=== PATIENT | male | born 1965 | race African-American/Black ===

== ENCOUNTER 2020-03-23 15:11 | Emergency (ER) | payer OTHER, SELFPAY ==
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
[2020-03-23 15:31] LABS: #Basophils 0.1 thou/uL (0.0-0.2); #Eosinphils 0.2 thou/uL (0.0-0.7); #Lymphocytes 1.3 thou/uL (1.20-3.40); #Monocytes 0.4 thou/uL (0.11-0.59); %Eosinophils 1.9 % (0.0-10.0); %Lymphocytes 16.2 % (21.0-51.0); %Monocytes 5.5 % (0.0-10.0); %Neutrophils 75.3 % (42.0-75.0); Hemoglobin 12.9 g/dL (14.0-18.0); Mean Corpuscular HGB CONC 32.6 g/dL (32.0-36.0); Mean Corpuscular Hemoglobin 28.3 pg (27.0-31.0); Mean Corpuscular Volume 86.8 fL (78.0-98.0); Mean Platelet Volume 9.7 fL (7.4-10.4); Platelet Count 134 thou/uL (130-400); RBC Distribution Width 12.1 % (11.5-14.5); Red Blood Cell (RBC) Count 4.55 mill/uL (4.70-6.10); White Blood Cell (WBC) Count 7.9 thou/uL (4.8-10.8)
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
[2020-03-23] MEDS ORDERED: traMADol HCl 50 MG TAB ONE (15:48)
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
[2020-03-23 15:51] LABS: ALT (SGPT) 27 U/L (8-55); AST (SGOT) 26 U/L (5-34); Albumin 3.8 g/dL (3.5-5.0); Alkaline Phosphatase 82 U/L (40-110); Anion Gap 11 mmol/L (10-20); BUN (Urea Nitrogen) 31 mg/dL (8.4-25.7); Bilirubin, Total 0.4 mg/dL (0.2-1.2); Calc. Creatinine Clearance 0 mL/min (70-130); Calcium 8.4 mg/dL (7.8-10.44); Carbon Dioxide 25 mmol/L (22-29); Chloride 107 mmol/L (98-107); Estimated GFR-MDRD 59; Globulin 2.8 g/dL (2.4-3.5); Glucose 283 mg/dL (70-105); Protein, Total 6.6 g/dL (6.0-8.3); Sodium 139 mmol/L (136-145)
[2020-03-23 16:05] LABS: Bacteria/HPF None Seen HPF (None Seen); Bilirubin Negative (Negative); Blood, Urine 2+ (Negative); Clarity Clear (Clear); Glucose, Urine (Dipstick) Greater than 1000 mg/dL (Negative); Ketone, Urine Negative (Negative); Leukocyte Negative Leu/uL (Negative); Nitrite Negative (Negative); Protein, Urine (Dipstick) 100 mg/dL (Neg-Trace); RBC/HPF 0-3 HPF (0-3); Specific Gravity, Urine 1.018 (1.002-1.036); Squamous Epithelial None Seen HPF (0-3); Urobilinogen Normal mg/dL (Less than 2); WBC/HPF 0-3 HPF (0-3); pH, Urine 6.5 (5.0-9.0)
== END 2020-03-23 19:19 | disposition home or self-care (01) ==
LOC: ERS 15:11
DX: S06.9X9A Unspecified intracranial injury with loss of consciousness of unspecified duration, initial encounter (principal); S22.42XA Multiple fractures of ribs, left side, initial encounter for closed fracture; S00.33XA Contusion of nose, initial encounter; S10.91XA Abrasion of unspecified part of neck, initial encounter; S40.212A Abrasion of left shoulder, initial encounter; E11.9 Type 2 diabetes mellitus without complications; I10 Essential (primary) hypertension; Z79.84 Long term (current) use of oral hypoglycemic drugs; Z79.82 Long term (current) use of aspirin; Z79.899 Other long term (current) drug therapy; V69.9XXA Occupant (driver) (passenger) of heavy transport vehicle injured in unspecified traffic accident, initial encounter
CPT/HCPCS: 36416; 70450; 70486; 71045; 72125; 80053; 81003; 81015; 85025; 90471; G0390

== ENCOUNTER 2021-04-21 18:52 | Inpatient (IN) | payer OTHER ==
[2021-04-21 20:34] LABS: #Lymphocytes 0.9 thou/uL (1.20-3.40); #Monocytes 1.1 thou/uL (0.11-0.59); #Neutrophils 8.2 thou/uL (1.40-6.50); %Eosinophils 0.1 % (0.0-10.0); %Lymphocytes 8.5 % (21.0-51.0); %Monocytes 10.5 % (0.0-10.0); %Neutrophils 80.9 % (42.0-75.0); Hemoglobin 8.7 g/dL (14.0-18.0); Mean Corpuscular HGB CONC 32.3 g/dL (32.0-36.0); Mean Corpuscular Hemoglobin 25.8 pg (27.0-31.0); Mean Corpuscular Volume 79.8 fL (78.0-98.0); Mean Platelet Volume 8.9 fL (7.4-10.4); Platelet Count 237 thou/uL (130-400); RBC Distribution Width 14.7 % (11.5-14.5); Red Blood Cell (RBC) Count 3.37 mill/uL (4.70-6.10); White Blood Cell (WBC) Count 10.1 thou/uL (4.8-10.8)
[2021-04-21 20:45] LABS: ALT (SGPT) 11 U/L (8-55); AST (SGOT) 22 U/L (5-34); Albumin 3.3 g/dL (3.5-5.0); Alkaline Phosphatase 87 U/L (40-110); Anion Gap 13 mmol/L (10-20); BUN (Urea Nitrogen) 22 mg/dL (8.4-25.7); Bilirubin, Total 0.5 mg/dL (0.2-1.2); Calc. Creatinine Clearance 0 mL/min (70-130); Calcium 8.8 mg/dL (7.8-10.44); Carbon Dioxide 29 mmol/L (22-29); Chloride 95 mmol/L (98-107); Globulin 4.5 g/dL (2.4-3.5); Glucose 261 mg/dL (70-105); Potassium 3.9 mmol/L (3.5-5.1); Protein, Total 7.8 g/dL (6.0-8.3); Sodium 133 mmol/L (136-145)
[2021-04-22] MEDS ORDERED: Fentanyl 100 MCG/2 ML VIAL ONE (01:27)
[2021-04-22 02:27] VITALS: BMI 22.1
[2021-04-22] MEDS ORDERED: Ondansetron PF 4 MG/2 ML Vial IVP PRN ×2 (02:30→12:17)
[2021-04-22] MEDS ORDERED: Ondansetron ODT 4 MG TAB SL PRN (02:30)
[2021-04-22] MEDS: Sodium Chloride 0.9% 1,000 ML IV SCH ×2 (03:41→12:16)
[2021-04-22] MEDS: Acetaminophen 325 MG TAB PO PRN ×2 (03:42→08:11)
[2021-04-22] MEDS ORDERED: Heparin 1,000 UNITS/ML VIAL ONE (09:02)
[2021-04-22] MEDS: Morphine 2 MG/ML VIAL SLOW IVP PRN ×3 (11:03→22:00)
[2021-04-22] MEDS ORDERED: Dextrose 50% Abboject 50 ML SYRINGE SLOW IVP PRN (12:17)
[2021-04-22] MEDS ORDERED: Dextrose 5% in Water 1,000 ML IV PRN (12:17)
[2021-04-22] MEDS ORDERED: Non-Formulary Item 1 EACH (Methocarbamol [Methocarbamol] 750 MG Tablet) PO PRN (12:21)
[2021-04-22 12:57] LABS: SARS-CoV-2 PCR by NAA Not Detected (NotDetected)
[2021-04-22] MEDS: HumaLOG 300 UNITS/3 ML VIAL SC PRN ×2 (16:53→20:33)
[2021-04-22] MEDS: HYDROcodone/Acetaminophen 5/325 mg Tablet PO PRN (17:40)
[2021-04-22 17:47] LABS: Bilirubin Negative (Negative); Blood, Urine 2+ (Negative); Clarity Clear (Clear); Glucose, Urine (Dipstick) >=1000 mg/dL (Negative); Ketone, Urine Negative (Negative); Leukocyte 500 Leu/uL (Negative); Nitrite Negative (Negative); Protein, Urine (Dipstick) 50 mg/dL (Neg-Trace); RBC/HPF 21-50 HPF (0-3); Specific Gravity, Urine 1.008 (1.002-1.036); Squamous Epithelial None Seen HPF (0-3); pH, Urine 5.5 (5.0-9.0)
[2021-04-22 17:48] LABS: Bacteria/HPF 1+ HPF (None Seen); Urine Culture Reflex Yes Yes; WBC/HPF 21-50 HPF (0-3)
[2021-04-22] MEDS: Carvedilol 25 MG TAB PO SCH (20:30)
[2021-04-22] MEDS: levETIRAcetam 500 MG TAB PO SCH (20:30)
[2021-04-22] MEDS: Tamsulosin HCl 0.4 MG CAP PO SCH (20:31)
[2021-04-22] MEDS: metFORMIN 500 MG TAB PO SCH (20:31)
[2021-04-22] MEDS: Methocarbamol 500 MG TAB PO PRN (20:32)
[2021-04-22] MEDS ORDERED: LEVETIRACETAM 750 MG PO SCH (21:00)
[2021-04-22] MEDS ORDERED: Non-Formulary Item 1 EACH (Metformin Hcl [Metformin Hcl] 1,000 MG Tablet) PO SCH (21:00)
[2021-04-22] MEDS ORDERED: Non-Formulary Item 1 EACH (Carvedilol [Coreg] 12.5 MG Tab) PO SCH (21:00)
[2021-04-22] MEDS: cefTRIAXone\\ROCEPHIN 1 GM in Sodium Chloride 0.9% 100 ML IVPB SCH (21:59)
[2021-04-23] MEDS: HumaLOG 300 UNITS/3 ML VIAL SC PRN ×3 (04:46→16:32)
[2021-04-23] MEDS: Acetaminophen 325 MG TAB PO PRN ×2 (04:46→21:35)
[2021-04-23] MEDS: Methocarbamol 500 MG TAB PO PRN ×2 (06:38→13:38)
[2021-04-23 08:26] LABS: #Eosinphils 0.1 thou/uL (0.0-0.7); #Lymphocytes 1.2 thou/uL (1.20-3.40); #Monocytes 1.1 thou/uL (0.11-0.59); #Neutrophils 8.8 thou/uL (1.40-6.50); %Basophils 0.4 % (0.0-1.0); %Eosinophils 0.6 % (0.0-10.0); %Lymphocytes 10.4 % (21.0-51.0); %Monocytes 10.1 % (0.0-10.0); %Neutrophils 78.5 % (42.0-75.0); Hemoglobin 7.7 g/dL (14.0-18.0); Mean Corpuscular HGB CONC 31.4 g/dL (32.0-36.0); Mean Corpuscular Hemoglobin 24.9 pg (27.0-31.0); Mean Corpuscular Volume 79.4 fL (78.0-98.0); Mean Platelet Volume 9.1 fL (7.4-10.4); Platelet Count 241 thou/uL (130-400); RBC Distribution Width 14.5 % (11.5-14.5); Red Blood Cell (RBC) Count 3.07 mill/uL (4.70-6.10); White Blood Cell (WBC) Count 11.2 thou/uL (4.8-10.8)
[2021-04-23 08:43] LABS: Anion Gap 11 mmol/L (10-20); BUN (Urea Nitrogen) 17 mg/dL (8.4-25.7); Calc. Creatinine Clearance 86 mL/min (70-130); Calcium 8.3 mg/dL (7.8-10.44); Carbon Dioxide 29 mmol/L (22-29); Chloride 96 mmol/L (98-107); Glucose 190 mg/dL (70-105); Potassium 3.8 mmol/L (3.5-5.1); Sodium 132 mmol/L (136-145)
[2021-04-23] MEDS ORDERED: Non-Formulary Item 1 EACH (Hydrochlorothiazide [Hydrochlorothiazide] 12.5 MG Tablet) PO SCH (09:00)
[2021-04-23] MEDS ORDERED: Hydrochlorothiazide 25 MG TAB PO SCH (09:00)
[2021-04-23] MEDS ORDERED: Non-Formulary Item 1 EACH (Losartan/Hydrochlorothiazide [Losartan-Hctz 100-12.5 Mg Tab] 1 PO SCH (09:00)
[2021-04-23] MEDS ORDERED: Non-Formulary Item 1 EACH (Rosuvastatin Calcium [Crestor] 40 MG Tablet) PO SCH (09:00)
[2021-04-23] MEDS ORDERED: Non-Formulary Item 1 EACH (Insulin Detemir [Levemir Flextouch] 100 UNIT/ML Insuln.Pen) SQ SCH (09:00)
[2021-04-23] MEDS: metFORMIN 500 MG TAB PO SCH ×2 (09:06→21:32)
[2021-04-23] MEDS: levETIRAcetam 500 MG TAB PO SCH ×2 (09:06→21:32)
[2021-04-23] MEDS: Hydrochlorothiazide 25 MG TAB PO SCH (09:07)
[2021-04-23] MEDS: Losartan 25 MG TAB PO SCH (09:08)
[2021-04-23] MEDS: Clopidogrel Bisulfate 75 MG TAB PO SCH (09:08)
[2021-04-23] MEDS: Escitalopram Oxalate 10 mg Tablet PO SCH (09:08)
[2021-04-23] MEDS: Carvedilol 25 MG TAB PO SCH ×2 (09:08→21:32)
[2021-04-23] MEDS: Rosuvastatin 20 MG TAB PO SCH (09:08)
[2021-04-23] MEDS: Morphine 2 MG/ML VIAL SLOW IVP PRN ×3 (09:50→22:39)
[2021-04-23] MEDS: Enoxaparin Sodium 40 MG/0.4 ML SYRINGE SC SCH (09:50)
[2021-04-23] MEDS: Lantus 1000 UNITS/10 ML VIAL SC SCH (09:52)
[2021-04-23] MEDS: HYDROcodone/Acetaminophen 5/325 mg Tablet PO PRN ×2 (12:16→18:26)
[2021-04-23] MEDS: cefTRIAXone\\ROCEPHIN 1 GM in Sodium Chloride 0.9% 100 ML IVPB SCH (21:33)
[2021-04-23] MEDS: Tamsulosin HCl 0.4 MG CAP PO SCH (22:39)
[2021-04-24] MEDS: Methocarbamol 500 MG TAB PO PRN (03:25)
[2021-04-24 07:04] LABS: #Eosinphils 0.1 thou/uL (0.0-0.7); #Lymphocytes 1.5 thou/uL (1.20-3.40); #Monocytes 1.1 thou/uL (0.11-0.59); #Neutrophils 9.9 thou/uL (1.40-6.50); %Lymphocytes 11.6 % (21.0-51.0); %Monocytes 8.4 % (0.0-10.0); Hemoglobin 7.5 g/dL (14.0-18.0); Mean Corpuscular HGB CONC 30.7 g/dL (32.0-36.0); Mean Corpuscular Hemoglobin 24.5 pg (27.0-31.0); Mean Corpuscular Volume 79.7 fL (78.0-98.0); Mean Platelet Volume 8.9 fL (7.4-10.4); Platelet Count 255 thou/uL (130-400); RBC Distribution Width 14.8 % (11.5-14.5); Red Blood Cell (RBC) Count 3.06 mill/uL (4.70-6.10); White Blood Cell (WBC) Count 12.5 thou/uL (4.8-10.8)
[2021-04-24 07:24] LABS: Anion Gap 11 mmol/L (10-20); BUN (Urea Nitrogen) 27 mg/dL (8.4-25.7); Calc. Creatinine Clearance 69 mL/min (70-130); Calcium 8.1 mg/dL (7.8-10.44); Carbon Dioxide 30 mmol/L (22-29); Chloride 96 mmol/L (98-107); Glucose 191 mg/dL (70-105); Sodium 133 mmol/L (136-145)
[2021-04-24] MEDS: levETIRAcetam 500 MG TAB PO SCH ×2 (08:55→21:45)
[2021-04-24] MEDS: Lantus 1000 UNITS/10 ML VIAL SC SCH (08:55)
[2021-04-24] MEDS: Acetaminophen 325 MG TAB PO PRN (08:56)
[2021-04-24] MEDS: metFORMIN 500 MG TAB PO SCH ×2 (08:56→21:46)
[2021-04-24] MEDS: Clopidogrel Bisulfate 75 MG TAB PO SCH (08:57)
[2021-04-24] MEDS: Hydrochlorothiazide 25 MG TAB PO SCH (08:57)
[2021-04-24] MEDS: Rosuvastatin 20 MG TAB PO SCH (08:57)
[2021-04-24] MEDS: Carvedilol 25 MG TAB PO SCH ×2 (08:57→21:34)
[2021-04-24] MEDS: Enoxaparin Sodium 40 MG/0.4 ML SYRINGE SC SCH (08:58)
[2021-04-24] MEDS: Escitalopram Oxalate 10 mg Tablet PO SCH (08:58)
[2021-04-24] MEDS: Losartan 25 MG TAB PO SCH (08:58)
[2021-04-24] MEDS ORDERED: Magnevist 469MG/ML 20 ML VIAL ONE (09:02)
[2021-04-24] MEDS: HumaLOG 300 UNITS/3 ML VIAL SC PRN ×2 (11:50→17:08)
[2021-04-24] MEDS ORDERED: Piperacillin/Tazobactam 4.5 GM in Sodium Chloride 0.9% 100 ML IVPB SCH (14:00)
[2021-04-24] MEDS ORDERED: Piperacillin/Tazobactam 3.375 GM in Sodium Chloride 0.9% 100 ML IVPB SCH ×2 (14:45→19:00)
[2021-04-24] MEDS ORDERED: VANCOMYCIN 2 GRAM/400 ML BAG 2 GM in Premix Bag 1 BAG IVPB SCH (15:00)
[2021-04-24] MEDS: Cefepime 2 GM in Sodium Chloride 0.9% 100 ML IVPB SCH (20:30)
[2021-04-24] MEDS: Tamsulosin HCl 0.4 MG CAP PO SCH (21:34)
[2021-04-25] MEDS: Vancomycin 1 GM in Premix Bag 1 BAG IVPB SCH ×2 (02:04→16:25)
[2021-04-25] MEDS: Cefepime 2 GM in Sodium Chloride 0.9% 100 ML IVPB SCH ×2 (04:06→17:26)
[2021-04-25 07:29] LABS: #Basophils 0.1 thou/uL (0.0-0.2); #Eosinphils 0.1 thou/uL (0.0-0.7); #Lymphocytes 1.3 thou/uL (1.20-3.40); #Neutrophils 9.1 thou/uL (1.40-6.50); %Basophils 0.5 % (0.0-1.0); %Eosinophils 1.2 % (0.0-10.0); %Lymphocytes 10.9 % (21.0-51.0); %Monocytes 8.4 % (0.0-10.0); %Neutrophils 79.1 % (42.0-75.0); Mean Corpuscular HGB CONC 32.3 g/dL (32.0-36.0); Mean Corpuscular Hemoglobin 25.6 pg (27.0-31.0); Mean Corpuscular Volume 79.2 fL (78.0-98.0); Mean Platelet Volume 8.4 fL (7.4-10.4); Platelet Count 294 thou/uL (130-400); RBC Distribution Width 14.8 % (11.5-14.5); Red Blood Cell (RBC) Count 2.75 mill/uL (4.70-6.10); White Blood Cell (WBC) Count 11.6 thou/uL (4.8-10.8)
[2021-04-25 07:52] LABS: Anion Gap 12 mmol/L (10-20); BUN (Urea Nitrogen) 24 mg/dL (8.4-25.7); Calc. Creatinine Clearance 79 mL/min (70-130); Calcium 8.3 mg/dL (7.8-10.44); Carbon Dioxide 32 mmol/L (22-29); Chloride 97 mmol/L (98-107); Potassium 3.8 mmol/L (3.5-5.1); Sodium 137 mmol/L (136-145)
[2021-04-25 07:54] LABS: Glucose 58 mg/dL (70-105)
[2021-04-25] MEDS: Carvedilol 25 MG TAB PO SCH ×2 (08:14→20:56)
[2021-04-25] MEDS: Losartan 25 MG TAB PO SCH (08:24)
[2021-04-25] MEDS ORDERED: FLU VACC QS2021-22(6MOS UP)/PF 60 MCG/0.5 ML SYRINGE IM ONE (09:30)
[2021-04-25] MEDS: Escitalopram Oxalate 10 mg Tablet PO SCH (11:02)
[2021-04-25] MEDS: Lantus 1000 UNITS/10 ML VIAL SC SCH (11:02)
[2021-04-25] MEDS: Hydrochlorothiazide 25 MG TAB PO SCH (11:02)
[2021-04-25] MEDS: levETIRAcetam 500 MG TAB PO SCH ×2 (11:03→20:55)
[2021-04-25] MEDS: Rosuvastatin 20 MG TAB PO SCH (11:03)
[2021-04-25] MEDS: metFORMIN 500 MG TAB PO SCH ×2 (11:03→20:57)
[2021-04-25] MEDS ORDERED: Midazolam HCl 2 mg/2 ml Vial ONE (11:50)
[2021-04-25] MEDS ORDERED: Fentanyl 100 MCG/2 ML VIAL ONE (11:50)
[2021-04-25] MEDS ORDERED: Ketamine 50 MG/ML (10ML VIAL) ONE (12:08)
[2021-04-25] MEDS ORDERED: HYDROmorphone 2 MG/ML VIAL ONE (12:43)
[2021-04-25] MEDS ORDERED: Fentanyl 250 MCG/5 ML VIAL ONE (12:43)
[2021-04-25] MEDS ORDERED: Phenylephrine 10 MG/ML VIAL ONE (12:43)
[2021-04-25] MEDS ORDERED: Glycopyrrolate 0.2 MG/ML 5 ML SYRINGE ONE (12:51)
[2021-04-25] MEDS ORDERED: Ondansetron PF 4 MG/2 ML Vial ONE (12:51)
[2021-04-25] MEDS ORDERED: PROPOFOL 200 MG/20 ML VIAL ONE (12:51)
[2021-04-25] MEDS ORDERED: Lidocaine 1% PF 5 ML VIAL ONE (12:51)
[2021-04-25] MEDS ORDERED: Rocuronium Bromide 10 MG/ML (10ML VIAL) ONE (12:51)
[2021-04-25] MEDS ORDERED: tiZANidine HCl 4 MG TAB PO PRN (14:25)
[2021-04-25] MEDS ORDERED: Promethazine HCl 25 MG/ML VIAL IM PRN (14:52)
[2021-04-25] MEDS ORDERED: Promethazine HCl 25 MG/ML VIAL IVPB PRN (14:52)
[2021-04-25] MEDS ORDERED: Ketorolac Tromethamine 30 MG/ML VIAL IVP PRN (14:52)
[2021-04-25] MEDS ORDERED: Ondansetron HCl/PF 4 MG/2 ML Vial IVP PRN (14:52)
[2021-04-25] MEDS ORDERED: HYDROmorphone 2 MG/ML VIAL SLOW IVP PRN (14:52)
[2021-04-25] MEDS ORDERED: Meperidine HCl/PF 25 MG/ML VIAL SLOW IVP PRN ×2 (14:52)
[2021-04-25] MEDS ORDERED: Dexamethasone 4 mg/ml Vial ONE (14:56)
[2021-04-25] MEDS: Tamsulosin HCl 0.4 MG CAP PO SCH (20:56)
[2021-04-26 02:28] LABS: Vancomycin, Trough 13.1 ug/mL
[2021-04-26] MEDS: HYDROcodone/Acetaminophen 5/325 mg Tablet PO PRN (03:00)
[2021-04-26] MEDS: VANCOMYCIN 1.25 GM/250 ML BAG 1.25 GM in Premix Bag 1 BAG IVPB SCH ×2 (03:00→14:07)
[2021-04-26] MEDS: Cefepime 2 GM in Sodium Chloride 0.9% 100 ML IVPB SCH ×2 (05:25→16:01)
[2021-04-26 08:16] LABS: #Lymphocytes 1.4 thou/uL (1.20-3.40); #Monocytes 1.3 thou/uL (0.11-0.59); #Neutrophils 10.2 thou/uL (1.40-6.50); %Basophils 0.1 % (0.0-1.0); %Eosinophils 0.1 % (0.0-10.0); %Lymphocytes 10.6 % (21.0-51.0); %Monocytes 9.9 % (0.0-10.0); %Neutrophils 79.3 % (42.0-75.0); Hemoglobin 8.3 g/dL (14.0-18.0); Mean Corpuscular HGB CONC 33.8 g/dL (32.0-36.0); Mean Corpuscular Hemoglobin 26.7 pg (27.0-31.0); Mean Platelet Volume 8.7 fL (7.4-10.4); Platelet Count 334 thou/uL (130-400); RBC Distribution Width 14.6 % (11.5-14.5); Red Blood Cell (RBC) Count 3.12 mill/uL (4.70-6.10); White Blood Cell (WBC) Count 12.9 thou/uL (4.8-10.8)
[2021-04-26] MEDS: Rosuvastatin 20 MG TAB PO SCH (08:31)
[2021-04-26] MEDS: Carvedilol 25 MG TAB PO SCH ×2 (08:32→20:04)
[2021-04-26] MEDS: metFORMIN 500 MG TAB PO SCH ×2 (08:32→20:04)
[2021-04-26] MEDS: levETIRAcetam 500 MG TAB PO SCH ×2 (08:32→20:04)
[2021-04-26] MEDS: Losartan 25 MG TAB PO SCH (08:32)
[2021-04-26] MEDS: Escitalopram Oxalate 10 mg Tablet PO SCH (08:33)
[2021-04-26] MEDS: Hydrochlorothiazide 25 MG TAB PO SCH ×2 (08:33→08:39)
[2021-04-26] MEDS: Lantus 1000 UNITS/10 ML VIAL SC SCH (08:35)
[2021-04-26 08:38] LABS: Anion Gap 13 mmol/L (10-20); BUN (Urea Nitrogen) 27 mg/dL (8.4-25.7); Calc. Creatinine Clearance 78 mL/min (70-130); Calcium 8.1 mg/dL (7.8-10.44); Carbon Dioxide 27 mmol/L (22-29); Chloride 98 mmol/L (98-107); Glucose 236 mg/dL (70-105); Potassium 4.6 mmol/L (3.5-5.1); Sodium 133 mmol/L (136-145)
[2021-04-26] MEDS: HumaLOG 300 UNITS/3 ML VIAL SC PRN ×2 (11:55→16:40)
[2021-04-26] MEDS: Acetaminophen/Codeine 30-300mg Tablet PO PRN (19:20)
[2021-04-26] MEDS: Tamsulosin HCl 0.4 MG CAP PO SCH (20:05)
[2021-04-27] MEDS: VANCOMYCIN 1.25 GM/250 ML BAG 1.25 GM in Premix Bag 1 BAG IVPB SCH (02:50)
[2021-04-27] MEDS: Cefepime 2 GM in Sodium Chloride 0.9% 100 ML IVPB SCH ×2 (04:25→16:06)
[2021-04-27 07:23] LABS: #Eosinphils 0.1 thou/uL (0.0-0.7); #Lymphocytes 1.4 thou/uL (1.20-3.40); #Monocytes 1.1 thou/uL (0.11-0.59); #Neutrophils 8.2 thou/uL (1.40-6.50); %Basophils 0.4 % (0.0-1.0); %Monocytes 9.9 % (0.0-10.0); %Neutrophils 75.8 % (42.0-75.0); Hemoglobin 7.2 g/dL (14.0-18.0); Mean Corpuscular HGB CONC 32.2 g/dL (32.0-36.0); Mean Corpuscular Hemoglobin 25.9 pg (27.0-31.0); Mean Corpuscular Volume 80.6 fL (78.0-98.0); Mean Platelet Volume 8.8 fL (7.4-10.4); Platelet Count 296 thou/uL (130-400); RBC Distribution Width 14.5 % (11.5-14.5); Red Blood Cell (RBC) Count 2.76 mill/uL (4.70-6.10); White Blood Cell (WBC) Count 10.8 thou/uL (4.8-10.8)
[2021-04-27 07:36] LABS: Anion Gap 8 mmol/L (10-20); BUN (Urea Nitrogen) 28 mg/dL (8.4-25.7); Calc. Creatinine Clearance 85 mL/min (70-130); Calcium 8.1 mg/dL (7.8-10.44); Carbon Dioxide 29 mmol/L (22-29); Chloride 99 mmol/L (98-107); Glucose 123 mg/dL (70-105); Potassium 4.3 mmol/L (3.5-5.1); Sodium 132 mmol/L (136-145)
[2021-04-27] MEDS: levETIRAcetam 500 MG TAB PO SCH ×2 (08:15→21:06)
[2021-04-27] MEDS: Lantus 1000 UNITS/10 ML VIAL SC SCH (08:15)
[2021-04-27] MEDS: Acetaminophen/Codeine 30-300mg Tablet PO PRN ×2 (08:16→16:02)
[2021-04-27] MEDS: Rosuvastatin 20 MG TAB PO SCH (08:16)
[2021-04-27] MEDS: Hydrochlorothiazide 25 MG TAB PO SCH (08:16)
[2021-04-27] MEDS: metFORMIN 500 MG TAB PO SCH ×2 (08:17→21:06)
[2021-04-27] MEDS: Escitalopram Oxalate 10 mg Tablet PO SCH (08:18)
[2021-04-27] MEDS: Losartan 25 MG TAB PO SCH (08:18)
[2021-04-27] MEDS: Carvedilol 25 MG TAB PO SCH ×2 (08:18→21:06)
[2021-04-27] MEDS: HumaLOG 300 UNITS/3 ML VIAL SC PRN (11:18)
[2021-04-27 15:23] LABS: Vancomycin, Trough 26.1 ug/mL
[2021-04-27] MEDS ORDERED: Baclofen 10 MG TAB PO SCH (21:00)
[2021-04-27] MEDS: Tamsulosin HCl 0.4 MG CAP PO SCH (21:06)
[2021-04-27] MEDS: Vancomycin HCl 750 MG in Sodium Chloride 0.9% 250 ML 250 ML IVPB SCH (21:07)
[2021-04-28] MEDS: Cefepime 2 GM in Sodium Chloride 0.9% 100 ML IVPB SCH (04:46)
[2021-04-28] MEDS: Lantus 1000 UNITS/10 ML VIAL SC SCH (08:40)
[2021-04-28] MEDS: Rosuvastatin 20 MG TAB PO SCH (08:41)
[2021-04-28] MEDS: Losartan 25 MG TAB PO SCH (08:41)
[2021-04-28] MEDS: metFORMIN 500 MG TAB PO SCH (08:41)
[2021-04-28] MEDS: levETIRAcetam 500 MG TAB PO SCH (08:41)
[2021-04-28] MEDS: Hydrochlorothiazide 25 MG TAB PO SCH (08:42)
[2021-04-28] MEDS: Escitalopram Oxalate 10 mg Tablet PO SCH (08:42)
[2021-04-28] MEDS: Baclofen 10 MG TAB PO SCH ×2 (08:42→14:22)
[2021-04-28] MEDS: Carvedilol 25 MG TAB PO SCH (08:42)
[2021-04-28] MEDS: Acetaminophen/Codeine 30-300mg Tablet PO PRN ×2 (08:43→18:18)
[2021-04-28] MEDS: Acetaminophen 325 MG TAB PO PRN (08:53)
[2021-04-28] MEDS: Vancomycin HCl 750 MG in Sodium Chloride 0.9% 250 ML 250 ML IVPB SCH (10:31)
[2021-04-28] MEDS ORDERED: ceFAZolin Sodium/D5W 2 GM in Premix Bag 1 BAG IVPB SCH (16:00)
[2021-04-28] MEDS: HumaLOG 300 UNITS/3 ML VIAL SC PRN (16:38)
[2021-04-28 20:07] VITALS: BP 145/82; TEMP 98.7
[2021-04-29 11:16] LABS: Fungus Stain Final report (.)
[2021-04-29 11:16] LABS: Fungus Stain Final report (.)
== END 2021-04-28 20:12 | DRG 29 ==
LOC: ERS 18:52 → T4-B 04-22 00:09 → OBSVTOIN 04-23 09:00
PROVIDERS: ADMIT Student in an Organized Health Care Education/Training Program; ATTEND Internal Medicine
PROC: 00CU0ZZ Extirpation of Matter from Spinal Canal, Open Approach (ICD-10-PCS; principal; 2021-04-25)
PROC: 02HV33Z Insertion of Infusion Device into Superior Vena Cava, Percutaneous Approach (ICD-10-PCS; 2021-04-27)
PROC: B548ZZA Ultrasonography of Superior Vena Cava, Guidance (ICD-10-PCS; 2021-04-27)
DX: G06.1 Intraspinal abscess and granuloma (principal); M48.54XA Collapsed vertebra, not elsewhere classified, thoracic region, initial encounter for fracture; N13.6 Pyonephrosis; M46.24 Osteomyelitis of vertebra, thoracic region; I69.951 Hemiplegia and hemiparesis following unspecified cerebrovascular disease affecting right dominant side; G82.21 Paraplegia, complete; M46.54 Other infective spondylopathies, thoracic region; E11.69 Type 2 diabetes mellitus with other specified complication; R32 Unspecified urinary incontinence; I10 Essential (primary) hypertension; E11.51 Type 2 diabetes mellitus with diabetic peripheral angiopathy without gangrene; N40.0 Benign prostatic hyperplasia without lower urinary tract symptoms; D64.9 Anemia, unspecified; M46.44 Discitis, unspecified, thoracic region; E78.5 Hyperlipidemia, unspecified; G40.909 Epilepsy, unspecified, not intractable, without status epilepticus; R15.9 Full incontinence of feces; Z89.512 Acquired absence of left leg below knee; Z79.4 Long term (current) use of insulin; Z79.84 Long term (current) use of oral hypoglycemic drugs; Z79.01 Long term (current) use of anticoagulants; Z79.899 Other long term (current) drug therapy; Z98.890 Other specified postprocedural states; Z79.82 Long term (current) use of aspirin
CPT/HCPCS: 36415; 36416; 36430; 36569; 51701; 70450; 70551; 71045; 72125; 72131; 72146; 72147; 72148; 74176; 76000; 80048; 80053; 80202; 81001; 83735; 85025; 86850; 86900; 86901; 87040; 87070; 87077; 87086; 87102; 87186; 87205; 87206; 96374; 96375; A9579; C1751; G0378; J0692; J0696; J1100; J1170; J1644; J1650; J1815; J2250; J2270; J2370; J2405; J2543; J2597; J2704; J3010; J3370; J3490; J7050; P9016; P9035; U0003; U0005

== ENCOUNTER 2021-07-07 02:18 | Inpatient (IN) | payer OTHER ==
[2021-07-07 03:49] LABS: Bilirubin Negative (Negative); Blood, Urine Negative (Negative); Clarity Clear (Clear); Glucose, Urine (Dipstick) Normal (Negative); Ketone, Urine Negative (Negative); Leukocyte 75 Leu/uL (Negative); Mucous/LPF Rare LPF (<2+); Nitrite Negative (Negative); Protein, Urine (Dipstick) 10 mg/dL (Neg-Trace); Specific Gravity, Urine 1.022 (1.002-1.036); Squamous Epithelial None Seen HPF (0-3); Urobilinogen Normal mg/dL (Less than 2)
[2021-07-07 03:51] LABS: #Basophils 0.1 thou/uL (0.0-0.2); #Eosinphils 0.3 thou/uL (0.0-0.7); #Lymphocytes 1.7 thou/uL (1.20-3.40); #Monocytes 0.8 thou/uL (0.11-0.59); #Neutrophils 10.3 thou/uL (1.40-6.50); %Basophils 0.5 % (0.0-1.0); %Eosinophils 2.5 % (0.0-10.0); %Lymphocytes 12.6 % (21.0-51.0); %Monocytes 6.1 % (0.0-10.0); %Neutrophils 78.4 % (42.0-75.0); Hemoglobin 8.4 g/dL (14.0-18.0); Mean Corpuscular HGB CONC 32.1 g/dL (32.0-36.0); Mean Corpuscular Hemoglobin 26.5 pg (27.0-31.0); Mean Corpuscular Volume 82.7 fL (78.0-98.0); Mean Platelet Volume 8.3 fL (7.4-10.4); Platelet Count 272 thou/uL (130-400); RBC Distribution Width 16.1 % (11.5-14.5); Red Blood Cell (RBC) Count 3.16 mill/uL (4.70-6.10); White Blood Cell (WBC) Count 13.1 thou/uL (4.8-10.8)
[2021-07-07 04:04] LABS: RBC/HPF 0-3 HPF (0-3); WBC/HPF 0-3 HPF (0-3)
[2021-07-07 04:12] LABS: ALT (SGPT) 40 U/L (8-55); AST (SGOT) 35 U/L (5-34); Albumin 2.7 g/dL (3.5-5.0); Alkaline Phosphatase 88 U/L (40-110); Anion Gap 16 mmol/L (10-20); BUN (Urea Nitrogen) 39 mg/dL (8.4-25.7); Bilirubin, Total 0.2 mg/dL (0.2-1.2); Calc. Creatinine Clearance 0 mL/min (70-130); Calcium 8.6 mg/dL (7.8-10.44); Carbon Dioxide 22 mmol/L (22-29); Chloride 104 mmol/L (98-107); Globulin 4.4 g/dL (2.4-3.5); Glucose 188 mg/dL (70-105); Potassium 4.7 mmol/L (3.5-5.1); Protein, Total 7.1 g/dL (6.0-8.3); Sodium 137 mmol/L (136-145)
[2021-07-07 04:26] LABS: SARS-CoV-2 NAA Rapid Test Not Detected (NotDetected)
[2021-07-07] MEDS ORDERED: cefTRIAXone\\ROCEPHIN 2 GM VIAL ONE (04:35)
[2021-07-07] MEDS ORDERED: Vancomycin 1 GM/200 ML BAG ONE (05:20)
[2021-07-07] MEDS ORDERED: Ondansetron ODT 4 MG TAB PO PRN (07:07)
[2021-07-07] MEDS ORDERED: Cepastat Lozenges 1 LOZ PO PRN (07:07)
[2021-07-07] MEDS ORDERED: Sodium Chloride 0.65% Nasal 44 ML BOT EA NARE PRN (07:07)
[2021-07-07] MEDS ORDERED: Calcium Carbonate 500 MG ChewTAB PO PRN (07:07)
[2021-07-07] MEDS ORDERED: Dextrose 50% Abboject 50 ML SYRINGE SLOW IVP PRN (07:07)
[2021-07-07] MEDS ORDERED: Artificial Tear Sol 15 ML BOT EA EYE PRN (07:07)
[2021-07-07] MEDS ORDERED: Bisacodyl 10 MG SUPP PR PRN (07:07)
[2021-07-07] MEDS ORDERED: Dextrose 5% in Water 1,000 ML IV PRN (07:07)
[2021-07-07] MEDS ORDERED: Senokot S 8.6-50 MG TAB PO PRN (07:07)
[2021-07-07] MEDS ORDERED: Ondansetron PF 4 MG/2 ML Vial IVP PRN (07:07)
[2021-07-07] MEDS ORDERED: Hydrocerin (Eucerin) Cream 120 gm Jar TOP PRN (07:07)
[2021-07-07] MEDS ORDERED: hydrALAZINE 20 MG/ML VIAL SLOW IVP PRN (07:07)
[2021-07-07] MEDS ORDERED: Zolpidem Tartrate 5 MG TAB PO PRN (07:07)
[2021-07-07] MEDS ORDERED: Loperamide HCl 2 MG CAP PO PRN ×2 (07:07)
[2021-07-07 08:08] LABS: Glucose 206 mg/dL (70-105)
[2021-07-07] MEDS ORDERED: Communication Order-Pharmacy FS PRN (08:11)
[2021-07-07] MEDS ORDERED: Famotidine 20 MG TAB PO SCH (09:00)
[2021-07-07] MEDS ORDERED: Cefepime 1 GM in Sodium Chloride 0.9% 100 ML IVPB SCH (09:00)
[2021-07-07 09:40] VITALS: BMI 22.6
[2021-07-07] MEDS ORDERED: FLU VACC QS2021-22(6MOS UP)/PF 60 MCG/0.5 ML SYRINGE IM ONE (10:30)
[2021-07-07] MEDS: Enoxaparin Sodium 40 MG/0.4 ML SYRINGE SC SCH (10:32)
[2021-07-07] MEDS: HYDROcodone/Acetaminophen 5/325 mg Tablet PO PRN (11:32)
[2021-07-07 13:01] LABS: Glucose 225 mg/dL (70-105)
[2021-07-07] MEDS: HumaLOG 300 UNITS/3 ML VIAL SC PRN ×3 (13:16→21:51)
[2021-07-07] MEDS: VANCOMYCIN 1.25 GM/250 ML BAG 1.25 GM in Premix Bag 1 BAG IVPB SCH (16:36)
[2021-07-07 17:27] LABS: Glucose 243 mg/dL (70-105)
[2021-07-07 21:25] LABS: Glucose 256 mg/dL (70-105)
[2021-07-07] MEDS: Cefepime 2 GM in Sodium Chloride 0.9% 100 ML IVPB SCH (21:27)
[2021-07-07] MEDS ORDERED: Baclofen 10 MG TAB PO SCH (23:30)
[2021-07-08] MEDS: VANCOMYCIN 1.25 GM/250 ML BAG 1.25 GM in Premix Bag 1 BAG IVPB SCH ×2 (05:54→17:05)
[2021-07-08 06:54] LABS: #Basophils 0.1 thou/uL (0.0-0.2); #Eosinphils 0.3 thou/uL (0.0-0.7); #Lymphocytes 1.4 thou/uL (1.20-3.40); #Monocytes 0.7 thou/uL (0.11-0.59); #Neutrophils 8.1 thou/uL (1.40-6.50); %Basophils 0.7 % (0.0-1.0); %Eosinophils 2.5 % (0.0-10.0); %Lymphocytes 13.7 % (21.0-51.0); %Monocytes 6.7 % (0.0-10.0); %Neutrophils 76.3 % (42.0-75.0); Hemoglobin 7.5 g/dL (14.0-18.0); Mean Corpuscular HGB CONC 31.4 g/dL (32.0-36.0); Mean Corpuscular Hemoglobin 25.9 pg (27.0-31.0); Mean Corpuscular Volume 82.3 fL (78.0-98.0); Mean Platelet Volume 8.3 fL (7.4-10.4); Platelet Count 222 thou/uL (130-400); RBC Distribution Width 15.9 % (11.5-14.5); Red Blood Cell (RBC) Count 2.91 mill/uL (4.70-6.10); White Blood Cell (WBC) Count 10.6 thou/uL (4.8-10.8)
[2021-07-08 07:05] LABS: Anion Gap 8 mmol/L (10-20); BUN (Urea Nitrogen) 28 mg/dL (8.4-25.7); Calc. Creatinine Clearance 100 mL/min (70-130); Calcium 8.7 mg/dL (7.8-10.44); Carbon Dioxide 28 mmol/L (22-29); Chloride 105 mmol/L (98-107); Glucose 194 mg/dL (70-105); Sodium 137 mmol/L (136-145)
[2021-07-08] MEDS ORDERED: Rosuvastatin 20 MG TAB PO SCH (09:00)
[2021-07-08] MEDS ORDERED: Lantus 1000 UNITS/10 ML VIAL SC SCH (09:00)
[2021-07-08] MEDS ORDERED: Non-Formulary Item 1 EACH (Tizanidine Hcl [Tizanidine Hcl] 4 MG Capsule) PO SCH (09:00)
[2021-07-08] MEDS: Cefepime 2 GM in Sodium Chloride 0.9% 100 ML IVPB SCH ×2 (09:10→20:31)
[2021-07-08] MEDS: Escitalopram Oxalate 10 mg Tablet PO SCH (09:11)
[2021-07-08] MEDS: levETIRAcetam 500 MG TAB PO SCH ×2 (09:11→20:33)
[2021-07-08] MEDS: Clopidogrel Bisulfate 75 MG TAB PO SCH (09:11)
[2021-07-08] MEDS: Carvedilol 25 MG TAB PO SCH ×2 (09:11→20:33)
[2021-07-08] MEDS: metFORMIN 500 MG TAB PO SCH ×2 (09:11→17:05)
[2021-07-08] MEDS: Enoxaparin Sodium 40 MG/0.4 ML SYRINGE SC SCH (09:13)
[2021-07-08] MEDS: Baclofen 10 MG TAB PO SCH ×4 (09:13→20:34)
[2021-07-08] MEDS ORDERED: Morphine 4 MG/ML VIAL SLOW IVP SCH (09:15)
[2021-07-08] MEDS: Docusate 100 MG CAP PO SCH ×2 (09:40→20:34)
[2021-07-08 11:59] LABS: Glucose 239 mg/dL (70-105)
[2021-07-08] MEDS: HumaLOG 300 UNITS/3 ML VIAL SC PRN (13:10)
[2021-07-08 17:27] LABS: Glucose 114 mg/dL (70-105)
[2021-07-08 17:32] LABS: Vancomycin, Trough 24.8 ug/mL
[2021-07-08] MEDS: Tamsulosin HCl 0.4 MG CAP PO SCH (20:33)
[2021-07-08] MEDS: Rosuvastatin 20 MG TAB PO SCH (20:34)
[2021-07-09] MEDS ORDERED: Vancomycin 1 GM in Premix Bag 1 BAG IVPB SCH (05:00)
[2021-07-09 07:57] LABS: Glucose 177 mg/dL (70-105)
[2021-07-09] MEDS: levETIRAcetam 500 MG TAB PO SCH ×2 (08:35→20:31)
[2021-07-09] MEDS: Docusate 100 MG CAP PO SCH ×2 (08:35→20:33)
[2021-07-09] MEDS: Baclofen 10 MG TAB PO SCH ×4 (08:36→20:32)
[2021-07-09] MEDS: Carvedilol 25 MG TAB PO SCH ×2 (08:36→20:32)
[2021-07-09] MEDS: Clopidogrel Bisulfate 75 MG TAB PO SCH (08:36)
[2021-07-09] MEDS: metFORMIN 500 MG TAB PO SCH ×2 (08:36→18:04)
[2021-07-09] MEDS: Escitalopram Oxalate 10 mg Tablet PO SCH (08:36)
[2021-07-09] MEDS: Cefepime 2 GM in Sodium Chloride 0.9% 100 ML IVPB SCH ×2 (08:36→20:27)
[2021-07-09] MEDS: Lantus 1000 UNITS/10 ML VIAL SC SCH (08:37)
[2021-07-09] MEDS: Enoxaparin Sodium 40 MG/0.4 ML SYRINGE SC SCH (08:37)
[2021-07-09 09:00] LABS: #Basophils 0.1 thou/uL (0.0-0.2); #Eosinphils 0.3 thou/uL (0.0-0.7); #Lymphocytes 1.4 thou/uL (1.20-3.40); #Monocytes 0.6 thou/uL (0.11-0.59); %Basophils 0.8 % (0.0-1.0); %Eosinophils 3.5 % (0.0-10.0); %Monocytes 5.9 % (0.0-10.0); %Neutrophils 74.8 % (42.0-75.0); Hemoglobin 7.5 g/dL (14.0-18.0); Mean Corpuscular Hemoglobin 26.4 pg (27.0-31.0); Mean Corpuscular Volume 82.6 fL (78.0-98.0); Mean Platelet Volume 7.9 fL (7.4-10.4); Platelet Count 220 thou/uL (130-400); RBC Distribution Width 15.8 % (11.5-14.5); Red Blood Cell (RBC) Count 2.85 mill/uL (4.70-6.10); White Blood Cell (WBC) Count 9.3 thou/uL (4.8-10.8)
[2021-07-09 16:33] LABS: Vancomycin, Trough 22.5 ug/mL
[2021-07-09] MEDS: Tamsulosin HCl 0.4 MG CAP PO SCH (20:31)
[2021-07-09] MEDS: Rosuvastatin 20 MG TAB PO SCH (20:31)
[2021-07-10] MEDS: HumaLOG 300 UNITS/3 ML VIAL SC PRN (05:53)
[2021-07-10] MEDS: Baclofen 10 MG TAB PO SCH ×4 (08:27→21:58)
[2021-07-10] MEDS: metFORMIN 500 MG TAB PO SCH ×2 (08:27→17:37)
[2021-07-10] MEDS: Clopidogrel Bisulfate 75 MG TAB PO SCH (08:28)
[2021-07-10] MEDS: Docusate 100 MG CAP PO SCH ×2 (08:28→21:59)
[2021-07-10] MEDS: Escitalopram Oxalate 10 mg Tablet PO SCH (08:28)
[2021-07-10] MEDS: levETIRAcetam 500 MG TAB PO SCH ×2 (08:28→21:59)
[2021-07-10] MEDS: Carvedilol 25 MG TAB PO SCH ×2 (08:28→22:00)
[2021-07-10 08:30] LABS: Glucose 200 mg/dL (70-105)
[2021-07-10] MEDS: Lantus 1000 UNITS/10 ML VIAL SC SCH (09:44)
[2021-07-10] MEDS: Cefepime 2 GM in Sodium Chloride 0.9% 100 ML IVPB SCH ×2 (10:05→21:58)
[2021-07-10 14:04] LABS: Hemoglobin 8.2 g/dL (14.0-18.0); Mean Corpuscular Volume 80.7 fL (78.0-98.0); Mean Platelet Volume 8.2 fL (7.4-10.4); Platelet Count 222 thou/uL (130-400); RBC Distribution Width 15.8 % (11.5-14.5); Red Blood Cell (RBC) Count 3.29 mill/uL (4.70-6.10); White Blood Cell (WBC) Count 9.8 thou/uL (4.8-10.8)
[2021-07-10 14:23] LABS: Band 2 % (5-11); Eosinophils 5 % (0-10); Lymphocytes 10 % (21-51); MDiff Complete? YES; Monocytes 5 % (0-10); Neutrophil 74 % (42-75); Ovalocytes SLIGHT = 2-5 cells (100X) (0-1/hpf); Platelet Morphology Comment Appears Adequate; Polychromasia SLIGHT = 2-3 cells (100X) (0-2/hpf)
[2021-07-10] MEDS: Rosuvastatin 20 MG TAB PO SCH (21:59)
[2021-07-10] MEDS: Tamsulosin HCl 0.4 MG CAP PO SCH (22:00)
[2021-07-11 07:33] LABS: Glucose 192 mg/dL (70-105)
[2021-07-11] MEDS: Cefepime 2 GM in Sodium Chloride 0.9% 100 ML IVPB SCH ×2 (08:34→20:44)
[2021-07-11 08:35] LABS: #Eosinphils 0.3 thou/uL (0.0-0.7); #Lymphocytes 1.4 thou/uL (1.20-3.40); #Monocytes 0.5 thou/uL (0.11-0.59); #Neutrophils 6.3 thou/uL (1.40-6.50); %Basophils 0.4 % (0.0-1.0); %Eosinophils 3.6 % (0.0-10.0); %Lymphocytes 16.4 % (21.0-51.0); %Monocytes 6.1 % (0.0-10.0); %Neutrophils 73.5 % (42.0-75.0); Hemoglobin 7.7 g/dL (14.0-18.0); Mean Corpuscular HGB CONC 31.1 g/dL (32.0-36.0); Mean Corpuscular Hemoglobin 25.6 pg (27.0-31.0); Mean Corpuscular Volume 82.2 fL (78.0-98.0); Mean Platelet Volume 8.5 fL (7.4-10.4); Platelet Count 233 thou/uL (130-400); RBC Distribution Width 15.8 % (11.5-14.5); White Blood Cell (WBC) Count 8.6 thou/uL (4.8-10.8)
[2021-07-11] MEDS: Clopidogrel Bisulfate 75 MG TAB PO SCH (08:36)
[2021-07-11] MEDS: Docusate 100 MG CAP PO SCH ×2 (08:36→20:42)
[2021-07-11] MEDS: levETIRAcetam 500 MG TAB PO SCH ×2 (08:37→20:42)
[2021-07-11] MEDS: metFORMIN 500 MG TAB PO SCH ×2 (08:37→16:43)
[2021-07-11] MEDS: Carvedilol 25 MG TAB PO SCH ×2 (08:38→20:42)
[2021-07-11] MEDS: Baclofen 10 MG TAB PO SCH ×4 (08:38→20:44)
[2021-07-11] MEDS: Escitalopram Oxalate 10 mg Tablet PO SCH (08:39)
[2021-07-11] MEDS: Lantus 1000 UNITS/10 ML VIAL SC SCH (08:44)
[2021-07-11 08:54] LABS: Anion Gap 10 mmol/L (10-20); BUN (Urea Nitrogen) 18 mg/dL (8.4-25.7); Calc. Creatinine Clearance 100 mL/min (70-130); Calcium 8.9 mg/dL (7.8-10.44); Carbon Dioxide 27 mmol/L (22-29); Chloride 106 mmol/L (98-107); Glucose 207 mg/dL (70-105); Potassium 3.6 mmol/L (3.5-5.1); Sodium 139 mmol/L (136-145)
[2021-07-11] MEDS: Morphine 4 MG/ML VIAL SLOW IVP PRN (10:18)
[2021-07-11 11:35] LABS: Glucose 215 mg/dL (70-105)
[2021-07-11] MEDS: HumaLOG 300 UNITS/3 ML VIAL SC PRN (12:18)
[2021-07-11] MEDS: Rosuvastatin 20 MG TAB PO SCH (20:43)
[2021-07-11] MEDS: Tamsulosin HCl 0.4 MG CAP PO SCH (20:43)
[2021-07-11] MEDS: HYDROcodone/Acetaminophen 5/325 mg Tablet PO PRN (20:44)
[2021-07-12] MEDS: HumaLOG 300 UNITS/3 ML VIAL SC PRN ×3 (06:26→18:08)
[2021-07-12] MEDS: Cefepime 2 GM in Sodium Chloride 0.9% 100 ML IVPB SCH ×2 (08:14→21:13)
[2021-07-12] MEDS: Lantus 1000 UNITS/10 ML VIAL SC SCH (08:14)
[2021-07-12] MEDS: Baclofen 10 MG TAB PO SCH ×4 (08:15→19:55)
[2021-07-12] MEDS: Docusate 100 MG CAP PO SCH ×2 (08:15→19:55)
[2021-07-12] MEDS: Carvedilol 25 MG TAB PO SCH ×2 (08:15→19:55)
[2021-07-12] MEDS: Escitalopram Oxalate 10 mg Tablet PO SCH (08:15)
[2021-07-12] MEDS: levETIRAcetam 500 MG TAB PO SCH ×2 (08:15→19:54)
[2021-07-12] MEDS: Clopidogrel Bisulfate 75 MG TAB PO SCH (08:15)
[2021-07-12] MEDS: metFORMIN 500 MG TAB PO SCH ×2 (08:16→18:08)
[2021-07-12] MEDS: Rosuvastatin 20 MG TAB PO SCH (19:54)
[2021-07-12] MEDS: Tamsulosin HCl 0.4 MG CAP PO SCH (19:55)
[2021-07-12] MEDS: HYDROcodone/Acetaminophen 5/325 mg Tablet PO PRN (19:57)
[2021-07-12] MEDS: Loratadine 10 MG TAB PO PRN (19:59)
[2021-07-13 06:44] LABS: #Eosinphils 0.4 thou/uL (0.0-0.7); #Lymphocytes 1.5 thou/uL (1.20-3.40); #Monocytes 0.6 thou/uL (0.11-0.59); #Neutrophils 6.6 thou/uL (1.40-6.50); %Basophils 0.2 % (0.0-1.0); %Monocytes 6.8 % (0.0-10.0); Hemoglobin 7.4 g/dL (14.0-18.0); Mean Corpuscular Hemoglobin 26.7 pg (27.0-31.0); Mean Platelet Volume 8.4 fL (7.4-10.4); Platelet Count 226 thou/uL (130-400); RBC Distribution Width 15.6 % (11.5-14.5); Red Blood Cell (RBC) Count 2.76 mill/uL (4.70-6.10); White Blood Cell (WBC) Count 9.1 thou/uL (4.8-10.8)
[2021-07-13 07:08] LABS: Anion Gap 7 mmol/L (10-20); BUN (Urea Nitrogen) 27 mg/dL (8.4-25.7); Calc. Creatinine Clearance 105 mL/min (70-130); Calcium 9.3 mg/dL (7.8-10.44); Carbon Dioxide 32 mmol/L (22-29); Chloride 104 mmol/L (98-107); Glucose 183 mg/dL (70-105); Potassium 3.6 mmol/L (3.5-5.1); Sodium 139 mmol/L (136-145)
[2021-07-13] MEDS: Cefepime 2 GM in Sodium Chloride 0.9% 100 ML IVPB SCH ×2 (09:17→20:40)
[2021-07-13] MEDS: Baclofen 10 MG TAB PO SCH ×4 (09:20→20:41)
[2021-07-13] MEDS: Clopidogrel Bisulfate 75 MG TAB PO SCH (09:20)
[2021-07-13] MEDS: metFORMIN 500 MG TAB PO SCH ×2 (09:20→17:11)
[2021-07-13] MEDS: Carvedilol 25 MG TAB PO SCH ×2 (09:20→20:41)
[2021-07-13] MEDS: levETIRAcetam 500 MG TAB PO SCH ×2 (09:20→20:41)
[2021-07-13] MEDS: Lantus 1000 UNITS/10 ML VIAL SC SCH (09:21)
[2021-07-13] MEDS: Docusate 100 MG CAP PO SCH ×2 (09:21→20:42)
[2021-07-13] MEDS: Escitalopram Oxalate 10 mg Tablet PO SCH (09:21)
[2021-07-13] MEDS ORDERED: Folic Acid 1 MG TAB PO SCH (11:30)
[2021-07-13] MEDS ORDERED: Ascorbic Acid 500 mg Chewable Tablet PO SCH (11:30)
[2021-07-13] MEDS ORDERED: Ferrous Gluconate 324 MG TAB PO SCH (11:30)
[2021-07-13] MEDS ORDERED: Multivitamin W/ Minerals 1 TAB PO SCH (11:30)
[2021-07-13] MEDS: HumaLOG 300 UNITS/3 ML VIAL SC PRN ×2 (12:10→17:11)
[2021-07-13] MEDS: Morphine 4 MG/ML VIAL SLOW IVP PRN (14:36)
[2021-07-13] MEDS: Rosuvastatin 20 MG TAB PO SCH (20:40)
[2021-07-13] MEDS: Tamsulosin HCl 0.4 MG CAP PO SCH (20:40)
[2021-07-13] MEDS: Loratadine 10 MG TAB PO PRN (20:50)
[2021-07-14] MEDS: Escitalopram Oxalate 10 mg Tablet PO SCH (09:46)
[2021-07-14] MEDS: levETIRAcetam 500 MG TAB PO SCH ×2 (09:47→20:37)
[2021-07-14] MEDS: Carvedilol 25 MG TAB PO SCH ×2 (09:47→20:37)
[2021-07-14] MEDS: Docusate 100 MG CAP PO SCH ×2 (09:47→20:36)
[2021-07-14] MEDS: metFORMIN 500 MG TAB PO SCH ×2 (09:48→16:55)
[2021-07-14] MEDS: Clopidogrel Bisulfate 75 MG TAB PO SCH (09:48)
[2021-07-14] MEDS: Multivitamin W/ Minerals 1 TAB PO SCH (09:48)
[2021-07-14] MEDS: Folic Acid 1 MG TAB PO SCH (09:49)
[2021-07-14] MEDS: Baclofen 10 MG TAB PO SCH ×4 (09:49→20:36)
[2021-07-14] MEDS: Ferrous Gluconate 324 MG TAB PO SCH (09:49)
[2021-07-14] MEDS: Ascorbic Acid 500 mg Chewable Tablet PO SCH (09:49)
[2021-07-14] MEDS: Lantus 1000 UNITS/10 ML VIAL SC SCH (09:50)
[2021-07-14] MEDS: Cefepime 2 GM in Sodium Chloride 0.9% 100 ML IVPB SCH ×2 (09:51→20:36)
[2021-07-14] MEDS: HumaLOG 300 UNITS/3 ML VIAL SC PRN ×2 (12:31→20:37)
[2021-07-14 17:32] LABS: SARS-CoV-2 PCR by NAA Not Detected (NotDetected)
[2021-07-14] MEDS: Rosuvastatin 20 MG TAB PO SCH (20:36)
[2021-07-14] MEDS: Loratadine 10 MG TAB PO PRN (20:37)
[2021-07-14] MEDS: Tamsulosin HCl 0.4 MG CAP PO SCH (20:37)
[2021-07-15] MEDS: HumaLOG 300 UNITS/3 ML VIAL SC PRN ×2 (05:54→12:23)
[2021-07-15] MEDS: Ferrous Gluconate 324 MG TAB PO SCH (08:53)
[2021-07-15] MEDS: Multivitamin W/ Minerals 1 TAB PO SCH (08:53)
[2021-07-15] MEDS: Ascorbic Acid 500 mg Chewable Tablet PO SCH (08:53)
[2021-07-15] MEDS: Folic Acid 1 MG TAB PO SCH (08:54)
[2021-07-15] MEDS: Clopidogrel Bisulfate 75 MG TAB PO SCH (08:54)
[2021-07-15] MEDS: metFORMIN 500 MG TAB PO SCH ×2 (08:54→17:04)
[2021-07-15] MEDS: Docusate 100 MG CAP PO SCH ×2 (08:54→20:05)
[2021-07-15] MEDS: levETIRAcetam 500 MG TAB PO SCH ×2 (08:54→20:14)
[2021-07-15] MEDS: Escitalopram Oxalate 10 mg Tablet PO SCH (08:55)
[2021-07-15] MEDS: Carvedilol 25 MG TAB PO SCH ×2 (08:55→20:14)
[2021-07-15] MEDS: Baclofen 10 MG TAB PO SCH ×4 (08:55→20:14)
[2021-07-15] MEDS: Lantus 1000 UNITS/10 ML VIAL SC SCH (08:55)
[2021-07-15] MEDS: Cefepime 2 GM in Sodium Chloride 0.9% 100 ML IVPB SCH (08:55)
[2021-07-15 09:36] LABS: #Eosinphils 0.2 thou/uL (0.0-0.7); #Lymphocytes 1.5 thou/uL (1.20-3.40); #Monocytes 0.7 thou/uL (0.11-0.59); #Neutrophils 7.6 thou/uL (1.40-6.50); %Basophils 0.4 % (0.0-1.0); %Eosinophils 2.1 % (0.0-10.0); %Lymphocytes 14.6 % (21.0-51.0); %Monocytes 6.6 % (0.0-10.0); %Neutrophils 76.3 % (42.0-75.0); Hemoglobin 7.6 g/dL (14.0-18.0); Mean Corpuscular HGB CONC 32.2 g/dL (32.0-36.0); Mean Corpuscular Hemoglobin 26.5 pg (27.0-31.0); Mean Corpuscular Volume 82.4 fL (78.0-98.0); Mean Platelet Volume 8.5 fL (7.4-10.4); Platelet Count 257 thou/uL (130-400); RBC Distribution Width 15.5 % (11.5-14.5); Red Blood Cell (RBC) Count 2.88 mill/uL (4.70-6.10); White Blood Cell (WBC) Count 9.9 thou/uL (4.8-10.8)
[2021-07-15 09:57] LABS: Anion Gap 11 mmol/L (10-20); BUN (Urea Nitrogen) 24 mg/dL (8.4-25.7); Calc. Creatinine Clearance 98 mL/min (70-130); Calcium 8.9 mg/dL (7.8-10.44); Carbon Dioxide 28 mmol/L (22-29); Chloride 103 mmol/L (98-107); Glucose 143 mg/dL (70-105); Potassium 3.8 mmol/L (3.5-5.1); Sodium 138 mmol/L (136-145)
[2021-07-15] MEDS: Morphine 4 MG/ML VIAL SLOW IVP PRN (09:57)
[2021-07-15] MEDS: Rosuvastatin 20 MG TAB PO SCH (20:14)
[2021-07-15] MEDS: Tamsulosin HCl 0.4 MG CAP PO SCH (20:14)
[2021-07-16] MEDS: levETIRAcetam 500 MG TAB PO SCH ×2 (08:23→21:56)
[2021-07-16] MEDS: Carvedilol 25 MG TAB PO SCH ×2 (08:23→21:57)
[2021-07-16] MEDS: Ascorbic Acid 500 mg Chewable Tablet PO SCH (08:25)
[2021-07-16] MEDS: Ferrous Gluconate 324 MG TAB PO SCH (08:25)
[2021-07-16] MEDS: metFORMIN 500 MG TAB PO SCH ×2 (08:25→16:44)
[2021-07-16] MEDS: Docusate 100 MG CAP PO SCH ×2 (08:25→21:58)
[2021-07-16] MEDS: Escitalopram Oxalate 10 mg Tablet PO SCH (08:25)
[2021-07-16] MEDS: Baclofen 10 MG TAB PO SCH ×4 (08:26→21:57)
[2021-07-16] MEDS: Clopidogrel Bisulfate 75 MG TAB PO SCH (08:26)
[2021-07-16] MEDS: Lantus 1000 UNITS/10 ML VIAL SC SCH (08:26)
[2021-07-16] MEDS: Folic Acid 1 MG TAB PO SCH (08:26)
[2021-07-16] MEDS: Multivitamin W/ Minerals 1 TAB PO SCH (08:26)
[2021-07-16] MEDS ORDERED: Cefepime 2 GM in Sodium Chloride 0.9% 100 ML IVPB SCH ×2 (13:30→21:00)
[2021-07-16] MEDS: Tamsulosin HCl 0.4 MG CAP PO SCH (21:56)
[2021-07-16] MEDS: Rosuvastatin 20 MG TAB PO SCH (21:56)
[2021-07-16] MEDS: HYDROcodone/Acetaminophen 5/325 mg Tablet PO PRN (21:57)
[2021-07-17 08:07] LABS: #Basophils 0.1 thou/uL (0.0-0.2); #Eosinphils 0.2 thou/uL (0.0-0.7); #Lymphocytes 1.4 thou/uL (1.20-3.40); #Monocytes 0.6 thou/uL (0.11-0.59); #Neutrophils 7.2 thou/uL (1.40-6.50); %Basophils 0.6 % (0.0-1.0); %Eosinophils 2.6 % (0.0-10.0); %Lymphocytes 14.6 % (21.0-51.0); %Monocytes 6.7 % (0.0-10.0); %Neutrophils 75.5 % (42.0-75.0); Hemoglobin 8.1 g/dL (14.0-18.0); Mean Corpuscular Hemoglobin 26.8 pg (27.0-31.0); Mean Corpuscular Volume 81.3 fL (78.0-98.0); Mean Platelet Volume 8.2 fL (7.4-10.4); Platelet Count 230 thou/uL (130-400); RBC Distribution Width 15.4 % (11.5-14.5); Red Blood Cell (RBC) Count 3.01 mill/uL (4.70-6.10); White Blood Cell (WBC) Count 9.5 thou/uL (4.8-10.8)
[2021-07-17] MEDS: Ferrous Gluconate 324 MG TAB PO SCH (08:14)
[2021-07-17] MEDS: Ascorbic Acid 500 mg Chewable Tablet PO SCH (08:14)
[2021-07-17] MEDS: Docusate 100 MG CAP PO SCH ×2 (08:14→20:38)
[2021-07-17] MEDS: Baclofen 10 MG TAB PO SCH ×4 (08:15→20:47)
[2021-07-17] MEDS: Folic Acid 1 MG TAB PO SCH (08:15)
[2021-07-17] MEDS: Escitalopram Oxalate 10 mg Tablet PO SCH (08:16)
[2021-07-17] MEDS: metFORMIN 500 MG TAB PO SCH ×2 (08:16→17:35)
[2021-07-17] MEDS: Clopidogrel Bisulfate 75 MG TAB PO SCH (08:16)
[2021-07-17] MEDS: Multivitamin W/ Minerals 1 TAB PO SCH (08:17)
[2021-07-17 08:27] LABS: Anion Gap 10 mmol/L (10-20); BUN (Urea Nitrogen) 19 mg/dL (8.4-25.7); Calc. Creatinine Clearance 97 mL/min (70-130); Calcium 9.2 mg/dL (7.8-10.44); Carbon Dioxide 30 mmol/L (22-29); Chloride 101 mmol/L (98-107); Glucose 161 mg/dL (70-105); Sodium 137 mmol/L (136-145)
[2021-07-17] MEDS: Lantus 1000 UNITS/10 ML VIAL SC SCH (08:37)
[2021-07-17] MEDS: Carvedilol 25 MG TAB PO SCH ×2 (08:46→20:47)
[2021-07-17] MEDS: levETIRAcetam 500 mg/5 ml Oral Solution PO SCH ×2 (09:02→20:47)
[2021-07-17] MEDS: HYDROcodone/Acetaminophen 5/325 mg Tablet PO PRN (17:35)
[2021-07-17] MEDS: Rosuvastatin 20 MG TAB PO SCH (20:47)
[2021-07-17] MEDS: Tamsulosin HCl 0.4 MG CAP PO SCH (20:47)
[2021-07-18] MEDS: Clopidogrel Bisulfate 75 MG TAB PO SCH (09:13)
[2021-07-18] MEDS: Docusate 100 MG CAP PO SCH ×2 (09:13→21:06)
[2021-07-18] MEDS: Baclofen 10 MG TAB PO SCH ×4 (09:13→21:07)
[2021-07-18] MEDS: Multivitamin W/ Minerals 1 TAB PO SCH (09:13)
[2021-07-18] MEDS: Ascorbic Acid 500 mg Chewable Tablet PO SCH (09:13)
[2021-07-18] MEDS: metFORMIN 500 MG TAB PO SCH ×2 (09:14→17:16)
[2021-07-18] MEDS: Folic Acid 1 MG TAB PO SCH (09:14)
[2021-07-18] MEDS: Escitalopram Oxalate 10 mg Tablet PO SCH (09:14)
[2021-07-18] MEDS: levETIRAcetam 500 mg/5 ml Oral Solution PO SCH ×2 (09:14→21:07)
[2021-07-18] MEDS: Ferrous Gluconate 324 MG TAB PO SCH (09:14)
[2021-07-18] MEDS: Carvedilol 25 MG TAB PO SCH ×2 (09:14→21:07)
[2021-07-18] MEDS: Lantus 1000 UNITS/10 ML VIAL SC SCH (09:16)
[2021-07-18] MEDS: HumaLOG 300 UNITS/3 ML VIAL SC PRN (17:17)
[2021-07-18] MEDS: Rosuvastatin 20 MG TAB PO SCH (21:06)
[2021-07-18] MEDS: Tamsulosin HCl 0.4 MG CAP PO SCH (21:07)
[2021-07-19] MEDS: HumaLOG 300 UNITS/3 ML VIAL SC PRN ×2 (06:23→12:52)
[2021-07-19] MEDS: levETIRAcetam 500 mg/5 ml Oral Solution PO SCH ×2 (08:42→20:38)
[2021-07-19] MEDS: metFORMIN 500 MG TAB PO SCH ×2 (08:43→17:14)
[2021-07-19] MEDS: Ferrous Gluconate 324 MG TAB PO SCH (08:43)
[2021-07-19] MEDS: Multivitamin W/ Minerals 1 TAB PO SCH (08:43)
[2021-07-19] MEDS: Docusate 100 MG CAP PO SCH ×2 (08:43→20:41)
[2021-07-19] MEDS: Clopidogrel Bisulfate 75 MG TAB PO SCH (08:43)
[2021-07-19] MEDS: Baclofen 10 MG TAB PO SCH ×4 (08:43→20:39)
[2021-07-19] MEDS: Escitalopram Oxalate 10 mg Tablet PO SCH (08:43)
[2021-07-19] MEDS: Carvedilol 25 MG TAB PO SCH ×2 (08:43→20:39)
[2021-07-19] MEDS: Ascorbic Acid 500 mg Chewable Tablet PO SCH (08:43)
[2021-07-19] MEDS: Folic Acid 1 MG TAB PO SCH (08:44)
[2021-07-19] MEDS: Lantus 1000 UNITS/10 ML VIAL SC SCH (09:44)
[2021-07-19] MEDS: Rosuvastatin 20 MG TAB PO SCH (20:40)
[2021-07-19] MEDS: Tamsulosin HCl 0.4 MG CAP PO SCH (20:40)
[2021-07-20] MEDS: Escitalopram Oxalate 10 mg Tablet PO SCH (09:22)
[2021-07-20] MEDS: Baclofen 10 MG TAB PO SCH ×4 (09:22→20:46)
[2021-07-20] MEDS: Clopidogrel Bisulfate 75 MG TAB PO SCH (09:22)
[2021-07-20] MEDS: Ferrous Gluconate 324 MG TAB PO SCH (09:23)
[2021-07-20] MEDS: levETIRAcetam 500 mg/5 ml Oral Solution PO SCH ×2 (09:23→21:32)
[2021-07-20] MEDS: Folic Acid 1 MG TAB PO SCH (09:23)
[2021-07-20] MEDS: Carvedilol 25 MG TAB PO SCH ×2 (09:23→20:40)
[2021-07-20] MEDS: Multivitamin W/ Minerals 1 TAB PO SCH (09:23)
[2021-07-20] MEDS: metFORMIN 500 MG TAB PO SCH ×2 (09:23→17:20)
[2021-07-20] MEDS: Ascorbic Acid 500 mg Chewable Tablet PO SCH (09:25)
[2021-07-20] MEDS: Docusate 100 MG CAP PO SCH ×2 (09:25→20:46)
[2021-07-20] MEDS: Lantus 1000 UNITS/10 ML VIAL SC SCH (09:33)
[2021-07-20] MEDS: Acetaminophen 325 MG TAB PO PRN (20:42)
[2021-07-20] MEDS: Rosuvastatin 20 MG TAB PO SCH (20:45)
[2021-07-20] MEDS: Tamsulosin HCl 0.4 MG CAP PO SCH (20:46)
[2021-07-21] MEDS: GUAIFENESIN SF SOLN 200 MG/10 ML UDCUP PO PRN (06:13)
[2021-07-21] MEDS: levETIRAcetam 500 mg/5 ml Oral Solution PO SCH ×2 (08:57→20:57)
[2021-07-21] MEDS: Folic Acid 1 MG TAB PO SCH (08:58)
[2021-07-21] MEDS: Escitalopram Oxalate 10 mg Tablet PO SCH (08:59)
[2021-07-21] MEDS: Clopidogrel Bisulfate 75 MG TAB PO SCH (08:59)
[2021-07-21] MEDS: Ascorbic Acid 500 mg Chewable Tablet PO SCH (08:59)
[2021-07-21] MEDS: Baclofen 10 MG TAB PO SCH ×4 (08:59→20:58)
[2021-07-21] MEDS: Multivitamin W/ Minerals 1 TAB PO SCH (08:59)
[2021-07-21] MEDS: Carvedilol 25 MG TAB PO SCH ×2 (08:59→20:59)
[2021-07-21] MEDS: Ferrous Gluconate 324 MG TAB PO SCH (08:59)
[2021-07-21] MEDS: Docusate 100 MG CAP PO SCH ×2 (08:59→20:59)
[2021-07-21] MEDS: metFORMIN 500 MG TAB PO SCH ×2 (09:00→18:02)
[2021-07-21] MEDS: Lantus 1000 UNITS/10 ML VIAL SC SCH (09:00)
[2021-07-21] MEDS: Acetaminophen 325 MG TAB PO PRN (20:56)
[2021-07-21] MEDS: Tamsulosin HCl 0.4 MG CAP PO SCH (20:57)
[2021-07-21] MEDS: Rosuvastatin 20 MG TAB PO SCH (20:57)
[2021-07-21] MEDS: Guaifenesin DM 100-10/5 ML UDCUP PO PRN (21:04)
[2021-07-22] MEDS: Guaifenesin DM 100-10/5 ML UDCUP PO PRN (05:01)
[2021-07-22] MEDS: Clopidogrel Bisulfate 75 MG TAB PO SCH (08:06)
[2021-07-22] MEDS: levETIRAcetam 500 mg/5 ml Oral Solution PO SCH ×2 (08:06→21:43)
[2021-07-22] MEDS: Docusate 100 MG CAP PO SCH ×2 (08:06→21:41)
[2021-07-22] MEDS: Baclofen 10 MG TAB PO SCH ×4 (08:06→21:41)
[2021-07-22] MEDS: Carvedilol 25 MG TAB PO SCH ×2 (08:06→21:42)
[2021-07-22] MEDS: Folic Acid 1 MG TAB PO SCH (08:07)
[2021-07-22] MEDS: Ferrous Gluconate 324 MG TAB PO SCH (08:07)
[2021-07-22] MEDS: Ascorbic Acid 500 mg Chewable Tablet PO SCH (08:07)
[2021-07-22] MEDS: metFORMIN 500 MG TAB PO SCH ×2 (08:07→16:32)
[2021-07-22] MEDS: Escitalopram Oxalate 10 mg Tablet PO SCH (08:07)
[2021-07-22] MEDS: Multivitamin W/ Minerals 1 TAB PO SCH (08:07)
[2021-07-22] MEDS: Lantus 1000 UNITS/10 ML VIAL SC SCH (08:08)
[2021-07-22 11:38] LABS: SARS-CoV-2 PCR by NAA Not Detected (NotDetected)
[2021-07-22] MEDS: Rosuvastatin 20 MG TAB PO SCH (21:42)
[2021-07-22] MEDS: Tamsulosin HCl 0.4 MG CAP PO SCH (21:42)
[2021-07-23] MEDS: Baclofen 10 MG TAB PO SCH ×4 (08:31→20:46)
[2021-07-23] MEDS: Carvedilol 25 MG TAB PO SCH ×2 (08:31→20:47)
[2021-07-23] MEDS: Escitalopram Oxalate 10 mg Tablet PO SCH (08:31)
[2021-07-23] MEDS: Ascorbic Acid 500 mg Chewable Tablet PO SCH (08:31)
[2021-07-23] MEDS: metFORMIN 500 MG TAB PO SCH ×2 (08:32→17:58)
[2021-07-23] MEDS: levETIRAcetam 500 mg/5 ml Oral Solution PO SCH ×2 (08:32→20:47)
[2021-07-23] MEDS: Ferrous Gluconate 324 MG TAB PO SCH (08:32)
[2021-07-23] MEDS: Docusate 100 MG CAP PO SCH ×2 (08:32→20:46)
[2021-07-23] MEDS: Folic Acid 1 MG TAB PO SCH (08:32)
[2021-07-23] MEDS: Multivitamin W/ Minerals 1 TAB PO SCH (08:32)
[2021-07-23] MEDS: Clopidogrel Bisulfate 75 MG TAB PO SCH (08:32)
[2021-07-23] MEDS: HYDROcodone/Acetaminophen 5/325 mg Tablet PO PRN (10:26)
[2021-07-23] MEDS: Lantus 1000 UNITS/10 ML VIAL SC SCH (12:39)
[2021-07-23] MEDS: Rosuvastatin 20 MG TAB PO SCH (20:46)
[2021-07-23] MEDS: Tamsulosin HCl 0.4 MG CAP PO SCH (20:47)
[2021-07-24] MEDS: GUAIFENESIN SF SOLN 200 MG/10 ML UDCUP PO PRN (04:48)
[2021-07-24] MEDS: Docusate 100 MG CAP PO SCH ×3 (09:04→20:32)
[2021-07-24] MEDS: Ascorbic Acid 500 mg Chewable Tablet PO SCH (09:04)
[2021-07-24] MEDS: Baclofen 10 MG TAB PO SCH ×4 (09:04→20:21)
[2021-07-24] MEDS: Carvedilol 25 MG TAB PO SCH ×2 (09:04→20:23)
[2021-07-24] MEDS: Clopidogrel Bisulfate 75 MG TAB PO SCH (09:04)
[2021-07-24] MEDS: Multivitamin W/ Minerals 1 TAB PO SCH (09:04)
[2021-07-24] MEDS: Folic Acid 1 MG TAB PO SCH (09:04)
[2021-07-24] MEDS: Escitalopram Oxalate 10 mg Tablet PO SCH (09:05)
[2021-07-24] MEDS: Ferrous Gluconate 324 MG TAB PO SCH (09:05)
[2021-07-24] MEDS: Lantus 1000 UNITS/10 ML VIAL SC SCH (09:05)
[2021-07-24] MEDS: metFORMIN 500 MG TAB PO SCH ×2 (09:05→16:20)
[2021-07-24] MEDS: levETIRAcetam 500 mg/5 ml Oral Solution PO SCH ×2 (09:32→20:21)
[2021-07-24] MEDS ORDERED: Dextrose 50% Abboject 50 ML SYRINGE SLOW IVP PRN (12:40)
[2021-07-24] MEDS: Rosuvastatin 20 MG TAB PO SCH (20:22)
[2021-07-24] MEDS: Tamsulosin HCl 0.4 MG CAP PO SCH (20:23)
[2021-07-24] MEDS: Guaifenesin DM 100-10/5 ML UDCUP PO PRN (20:30)
[2021-07-25] MEDS: Ascorbic Acid 500 mg Chewable Tablet PO SCH (08:42)
[2021-07-25] MEDS: Clopidogrel Bisulfate 75 MG TAB PO SCH (08:42)
[2021-07-25] MEDS: Escitalopram Oxalate 10 mg Tablet PO SCH (08:42)
[2021-07-25] MEDS: Multivitamin W/ Minerals 1 TAB PO SCH (08:43)
[2021-07-25] MEDS: Baclofen 10 MG TAB PO SCH ×4 (08:43→21:01)
[2021-07-25] MEDS: metFORMIN 500 MG TAB PO SCH ×2 (08:43→18:02)
[2021-07-25] MEDS: Folic Acid 1 MG TAB PO SCH (08:43)
[2021-07-25] MEDS: Ferrous Gluconate 324 MG TAB PO SCH (08:43)
[2021-07-25] MEDS: Lantus 1000 UNITS/10 ML VIAL SC SCH (08:45)
[2021-07-25] MEDS: Docusate 100 MG CAP PO SCH ×2 (08:52→21:15)
[2021-07-25] MEDS: Carvedilol 25 MG TAB PO SCH ×2 (09:20→21:01)
[2021-07-25] MEDS: levETIRAcetam 500 mg/5 ml Oral Solution PO SCH ×2 (12:10→21:02)
[2021-07-25] MEDS: Tamsulosin HCl 0.4 MG CAP PO SCH (21:01)
[2021-07-25] MEDS: Rosuvastatin 20 MG TAB PO SCH (21:02)
[2021-07-25] MEDS: Guaifenesin DM 100-10/5 ML UDCUP PO PRN (21:05)
[2021-07-25] MEDS: Acetaminophen 325 MG TAB PO PRN (21:06)
[2021-07-26 07:10] LABS: #Eosinphils 0.3 thou/uL (0.0-0.7); #Lymphocytes 1.4 thou/uL (1.20-3.40); #Monocytes 0.8 thou/uL (0.11-0.59); #Neutrophils 6.5 thou/uL (1.40-6.50); %Basophils 0.5 % (0.0-1.0); %Eosinophils 3.1 % (0.0-10.0); %Lymphocytes 15.7 % (21.0-51.0); %Monocytes 8.7 % (0.0-10.0); %Neutrophils 72.1 % (42.0-75.0); Hemoglobin 7.4 g/dL (14.0-18.0); Mean Corpuscular HGB CONC 31.6 g/dL (32.0-36.0); Mean Corpuscular Hemoglobin 25.3 pg (27.0-31.0); Mean Platelet Volume 8.4 fL (7.4-10.4); Platelet Count 250 thou/uL (130-400); RBC Distribution Width 14.6 % (11.5-14.5); Red Blood Cell (RBC) Count 2.92 mill/uL (4.70-6.10)
[2021-07-26 07:28] LABS: Anion Gap 12 mmol/L (10-20); BUN (Urea Nitrogen) 21 mg/dL (8.4-25.7); Calc. Creatinine Clearance 79 mL/min (70-130); Calcium 9.2 mg/dL (7.8-10.44); Carbon Dioxide 30 mmol/L (22-29); Chloride 99 mmol/L (98-107); Glucose 148 mg/dL (70-105); Sodium 137 mmol/L (136-145)
[2021-07-26] MEDS: Multivitamin W/ Minerals 1 TAB PO SCH (08:37)
[2021-07-26] MEDS: Baclofen 10 MG TAB PO SCH ×4 (08:37→20:08)
[2021-07-26] MEDS: Folic Acid 1 MG TAB PO SCH (08:38)
[2021-07-26] MEDS: metFORMIN 500 MG TAB PO SCH ×2 (08:38→16:12)
[2021-07-26] MEDS: Clopidogrel Bisulfate 75 MG TAB PO SCH (08:38)
[2021-07-26] MEDS: Docusate 100 MG CAP PO SCH ×2 (08:38→20:15)
[2021-07-26] MEDS: Carvedilol 25 MG TAB PO SCH ×2 (08:38→20:08)
[2021-07-26] MEDS: Escitalopram Oxalate 10 mg Tablet PO SCH (08:38)
[2021-07-26] MEDS: Ascorbic Acid 500 mg Chewable Tablet PO SCH (08:39)
[2021-07-26] MEDS: Ferrous Gluconate 324 MG TAB PO SCH (08:39)
[2021-07-26] MEDS: Lantus 1000 UNITS/10 ML VIAL SC SCH (10:55)
[2021-07-26] MEDS ORDERED: Heparin 1,000 UNITS/ML VIAL ONE (14:02)
[2021-07-26] MEDS: levETIRAcetam 500 mg/5 ml Oral Solution PO SCH ×2 (15:15→20:09)
[2021-07-26] MEDS: GUAIFENESIN SF SOLN 200 MG/10 ML UDCUP PO PRN (15:25)
[2021-07-26] MEDS: Rosuvastatin 20 MG TAB PO SCH (20:08)
[2021-07-26] MEDS: Tamsulosin HCl 0.4 MG CAP PO SCH (20:08)
[2021-07-26] MEDS: Acetaminophen 325 MG TAB PO PRN (20:09)
[2021-07-26] MEDS: Guaifenesin DM 100-10/5 ML UDCUP PO PRN (20:09)
[2021-07-27] MEDS: Carvedilol 25 MG TAB PO SCH ×2 (05:40→20:45)
[2021-07-27 06:25] LABS: #Basophils 0.1 thou/uL (0.0-0.2); #Eosinphils 0.2 thou/uL (0.0-0.7); #Lymphocytes 1.5 thou/uL (1.20-3.40); #Monocytes 0.8 thou/uL (0.11-0.59); #Neutrophils 6.3 thou/uL (1.40-6.50); %Basophils 0.9 % (0.0-1.0); %Eosinophils 2.3 % (0.0-10.0); %Monocytes 9.4 % (0.0-10.0); %Neutrophils 70.5 % (42.0-75.0); Hemoglobin 7.2 g/dL (14.0-18.0); Mean Corpuscular HGB CONC 32.1 g/dL (32.0-36.0); Mean Corpuscular Hemoglobin 25.8 pg (27.0-31.0); Mean Corpuscular Volume 80.3 fL (78.0-98.0); Mean Platelet Volume 8.5 fL (7.4-10.4); Platelet Count 271 thou/uL (130-400); RBC Distribution Width 14.7 % (11.5-14.5); Red Blood Cell (RBC) Count 2.79 mill/uL (4.70-6.10); White Blood Cell (WBC) Count 8.9 thou/uL (4.8-10.8)
[2021-07-27 06:43] LABS: Anion Gap 13 mmol/L (10-20); BUN (Urea Nitrogen) 22 mg/dL (8.4-25.7); Calc. Creatinine Clearance 70 mL/min (70-130); Calcium 8.9 mg/dL (7.8-10.44); Carbon Dioxide 31 mmol/L (22-29); Chloride 98 mmol/L (98-107); Glucose 300 mg/dL (70-105); Potassium 3.8 mmol/L (3.5-5.1); Sodium 138 mmol/L (136-145)
[2021-07-27] MEDS: Clopidogrel Bisulfate 75 MG TAB PO SCH (07:45)
[2021-07-27] MEDS: metFORMIN 500 MG TAB PO SCH ×2 (07:45→18:19)
[2021-07-27] MEDS: Lantus 1000 UNITS/10 ML VIAL SC SCH (07:46)
[2021-07-27] MEDS: Docusate 100 MG CAP PO SCH ×2 (07:46→20:44)
[2021-07-27] MEDS: Multivitamin W/ Minerals 1 TAB PO SCH (08:34)
[2021-07-27] MEDS: Ascorbic Acid 500 mg Chewable Tablet PO SCH (08:34)
[2021-07-27] MEDS: levETIRAcetam 500 mg/5 ml Oral Solution PO SCH ×2 (08:37→20:43)
[2021-07-27] MEDS: Escitalopram Oxalate 10 mg Tablet PO SCH (08:40)
[2021-07-27] MEDS: Baclofen 10 MG TAB PO SCH ×4 (08:40→20:45)
[2021-07-27] MEDS: Sodium Chloride 0.9% 1,000 ML IV SCH ×2 (08:41→20:46)
[2021-07-27] MEDS ORDERED: Sodium Chloride 0.9% 10 ML ONE (11:50)
[2021-07-27] MEDS ORDERED: Fentanyl 100 MCG/2 ML VIAL ONE (11:50)
[2021-07-27] MEDS ORDERED: Dexmedetomidine 200 MCG/2 ML VIAL ONE (11:51)
[2021-07-27] MEDS ORDERED: ceFAZolin 2 GM/DEX 5% 100 ML BAG ONE (13:49)
[2021-07-27] MEDS ORDERED: Glycopyrrolate 0.2 MG/ML 5 ML SYRINGE ONE (14:12)
[2021-07-27] MEDS ORDERED: PROPOFOL 200 MG/20 ML VIAL ONE (14:12)
[2021-07-27] MEDS ORDERED: Ondansetron PF 4 MG/2 ML Vial ONE (14:12)
[2021-07-27] MEDS ORDERED: Rocuronium Bromide 10 MG/ML (10ML VIAL) ONE (14:12)
[2021-07-27] MEDS ORDERED: ePHEDrine 50 MG/ML VIAL ONE (14:12)
[2021-07-27] MEDS ORDERED: Dexamethasone 20 MG/5 ML VIAL ONE (14:12)
[2021-07-27] MEDS ORDERED: Lidocaine 1% PF 5 ML VIAL ONE (14:12)
[2021-07-27] MEDS ORDERED: Promethazine HCl 25 MG/ML VIAL IVPB PRN (15:23)
[2021-07-27] MEDS ORDERED: Promethazine HCl 25 MG/ML VIAL IM PRN (15:23)
[2021-07-27] MEDS ORDERED: Ondansetron HCl/PF 4 MG/2 ML Vial IVP PRN (15:23)
[2021-07-27] MEDS: Folic Acid 1 MG TAB PO SCH (16:13)
[2021-07-27] MEDS: Ferrous Gluconate 324 MG TAB PO SCH (16:13)
[2021-07-27] MEDS: HYDROcodone/Acetaminophen 5/325 mg Tablet PO PRN ×2 (17:01→21:00)
[2021-07-27] MEDS: HumaLOG 300 UNITS/3 ML VIAL SC PRN ×2 (18:20→22:22)
[2021-07-27] MEDS: Tamsulosin HCl 0.4 MG CAP PO SCH (20:45)
[2021-07-27] MEDS: Rosuvastatin 20 MG TAB PO SCH (20:45)
[2021-07-27] MEDS: GUAIFENESIN SF SOLN 200 MG/10 ML UDCUP PO PRN (21:00)
[2021-07-27] MEDS: Loratadine 10 MG TAB PO PRN (21:02)
[2021-07-28] MEDS: Morphine 4 MG/ML VIAL SLOW IVP PRN (06:14)
[2021-07-28] MEDS: Baclofen 10 MG TAB PO SCH ×4 (06:18→21:24)
[2021-07-28] MEDS: HumaLOG 300 UNITS/3 ML VIAL SC PRN ×3 (06:26→21:25)
[2021-07-28 08:01] LABS: Mean Corpuscular HGB CONC 32.9 g/dL (32.0-36.0); Mean Corpuscular Hemoglobin 26.4 pg (27.0-31.0); Mean Corpuscular Volume 80.1 fL (78.0-98.0); Mean Platelet Volume 8.3 fL (7.4-10.4); Platelet Count 224 thou/uL (130-400); RBC Distribution Width 14.5 % (11.5-14.5); Red Blood Cell (RBC) Count 2.27 mill/uL (4.70-6.10); White Blood Cell (WBC) Count 12.1 thou/uL (4.8-10.8)
[2021-07-28 08:30] LABS: Band 14 % (5-11); Eosinophils 2 % (0-10); Hypochromia SLIGHT = 6-15 cells (100X) (0-5/hpf); Lymphocytes 10 % (21-51); MDiff Complete? YES; Monocytes 10 % (0-10); Neutrophil 63 % (42-75); Platelet Morphology Comment Appears Adequate; Polychromasia SLIGHT = 2-3 cells (100X) (0-2/hpf)
[2021-07-28] MEDS: Ascorbic Acid 500 mg Chewable Tablet PO SCH (09:18)
[2021-07-28] MEDS: Multivitamin W/ Minerals 1 TAB PO SCH (09:18)
[2021-07-28] MEDS: Escitalopram Oxalate 10 mg Tablet PO SCH (09:19)
[2021-07-28] MEDS: Carvedilol 25 MG TAB PO SCH ×2 (09:19→21:24)
[2021-07-28] MEDS: metFORMIN 500 MG TAB PO SCH ×2 (09:19→18:07)
[2021-07-28] MEDS: Folic Acid 1 MG TAB PO SCH (09:19)
[2021-07-28] MEDS: Clopidogrel Bisulfate 75 MG TAB PO SCH (09:24)
[2021-07-28] MEDS: Ferrous Gluconate 324 MG TAB PO SCH (09:24)
[2021-07-28] MEDS: levETIRAcetam 500 mg/5 ml Oral Solution PO SCH ×2 (09:25→21:23)
[2021-07-28] MEDS: Docusate 100 MG CAP PO SCH ×2 (09:26→21:24)
[2021-07-28] MEDS: Lantus 1000 UNITS/10 ML VIAL SC SCH (09:28)
[2021-07-28] MEDS: Sodium Chloride 0.9% 1,000 ML IV SCH (09:30)
[2021-07-28] MEDS: Guaifenesin DM 100-10/5 ML UDCUP PO PRN (12:20)
[2021-07-28 13:51] LABS: Chloride 100 mmol/L (98-107); Potassium 4.3 mmol/L (3.5-5.1); Sodium 135 mmol/L (136-145)
[2021-07-28 13:52] LABS: Calcium 8.7 mg/dL (7.8-10.44); Glucose 242 mg/dL (70-105)
[2021-07-28 13:54] LABS: Anion Gap 14 mmol/L (10-20); Carbon Dioxide 25 mmol/L (22-29)
[2021-07-28 13:56] LABS: BUN (Urea Nitrogen) 18 mg/dL (8.4-25.7); Calc. Creatinine Clearance 75 mL/min (70-130)
[2021-07-28] MEDS: Rosuvastatin 20 MG TAB PO SCH (21:24)
[2021-07-28] MEDS: Tamsulosin HCl 0.4 MG CAP PO SCH (21:24)
[2021-07-28] MEDS: Acetaminophen 325 MG TAB PO PRN (21:33)
[2021-07-29] MEDS: Sodium Chloride 0.9% 1,000 ML IV SCH ×2 (01:28→14:56)
[2021-07-29] MEDS: HumaLOG 300 UNITS/3 ML VIAL SC PRN ×2 (06:01→12:21)
[2021-07-29] MEDS: Guaifenesin DM 100-10/5 ML UDCUP PO PRN (06:01)
[2021-07-29] MEDS: levETIRAcetam 500 mg/5 ml Oral Solution PO SCH ×3 (10:30→20:21)
[2021-07-29] MEDS: metFORMIN 500 MG TAB PO SCH ×2 (10:34→17:13)
[2021-07-29] MEDS: Docusate 100 MG CAP PO SCH ×3 (10:34→20:21)
[2021-07-29] MEDS: Ascorbic Acid 500 mg Chewable Tablet PO SCH (10:34)
[2021-07-29] MEDS: Clopidogrel Bisulfate 75 MG TAB PO SCH (10:34)
[2021-07-29] MEDS: Escitalopram Oxalate 10 mg Tablet PO SCH (10:35)
[2021-07-29] MEDS: Carvedilol 25 MG TAB PO SCH ×3 (10:35→20:21)
[2021-07-29] MEDS: Folic Acid 1 MG TAB PO SCH (10:35)
[2021-07-29] MEDS: Ferrous Gluconate 324 MG TAB PO SCH (10:35)
[2021-07-29] MEDS: Multivitamin W/ Minerals 1 TAB PO SCH (10:35)
[2021-07-29] MEDS: Baclofen 10 MG TAB PO SCH ×5 (10:35→20:21)
[2021-07-29] MEDS: Lantus 1000 UNITS/10 ML VIAL SC SCH (10:36)
[2021-07-29 11:49] LABS: #Eosinphils 0.1 thou/uL (0.0-0.7); #Lymphocytes 1.4 thou/uL (1.20-3.40); #Monocytes 1.2 thou/uL (0.11-0.59); %Basophils 0.2 % (0.0-1.0); %Eosinophils 0.3 % (0.0-10.0); %Lymphocytes 8.7 % (21.0-51.0); %Monocytes 7.9 % (0.0-10.0); %Neutrophils 82.9 % (42.0-75.0); Hemoglobin 8.2 g/dL (14.0-18.0); Mean Corpuscular HGB CONC 32.9 g/dL (32.0-36.0); Mean Corpuscular Hemoglobin 27.4 pg (27.0-31.0); Mean Corpuscular Volume 83.1 fL (78.0-98.0); Mean Platelet Volume 8.2 fL (7.4-10.4); Platelet Count 215 thou/uL (130-400); RBC Distribution Width 15.4 % (11.5-14.5); Red Blood Cell (RBC) Count 2.99 mill/uL (4.70-6.10); White Blood Cell (WBC) Count 15.7 thou/uL (4.8-10.8)
[2021-07-29 18:25] LABS: SARS-CoV-2 PCR by NAA Not Detected (NotDetected)
[2021-07-29] MEDS: Rosuvastatin 20 MG TAB PO SCH ×2 (20:14→20:21)
[2021-07-29] MEDS: Tamsulosin HCl 0.4 MG CAP PO SCH ×2 (20:14→20:21)
[2021-07-30] MEDS: Sodium Chloride 0.9% 1,000 ML IV SCH ×3 (03:09→16:18)
[2021-07-30] MEDS: levETIRAcetam 500 mg/5 ml Oral Solution PO SCH ×2 (08:49→20:04)
[2021-07-30] MEDS: Folic Acid 1 MG TAB PO SCH (08:50)
[2021-07-30] MEDS: Docusate 100 MG CAP PO SCH ×2 (08:50→20:04)
[2021-07-30] MEDS: Clopidogrel Bisulfate 75 MG TAB PO SCH (08:50)
[2021-07-30] MEDS: Carvedilol 25 MG TAB PO SCH ×2 (08:50→20:04)
[2021-07-30] MEDS: Escitalopram Oxalate 10 mg Tablet PO SCH (08:50)
[2021-07-30] MEDS: Baclofen 10 MG TAB PO SCH ×4 (08:50→20:04)
[2021-07-30] MEDS: Multivitamin W/ Minerals 1 TAB PO SCH (08:50)
[2021-07-30] MEDS: metFORMIN 500 MG TAB PO SCH ×2 (08:50→16:23)
[2021-07-30] MEDS: Ascorbic Acid 500 mg Chewable Tablet PO SCH (08:50)
[2021-07-30] MEDS: Ferrous Gluconate 324 MG TAB PO SCH (08:50)
[2021-07-30] MEDS: Lantus 1000 UNITS/10 ML VIAL SC SCH (08:51)
[2021-07-30] MEDS: Guaifenesin DM 100-10/5 ML UDCUP PO PRN (18:35)
[2021-07-30] MEDS: Rosuvastatin 20 MG TAB PO SCH (20:04)
[2021-07-30] MEDS: Tamsulosin HCl 0.4 MG CAP PO SCH (20:04)
[2021-07-31] MEDS: Sodium Chloride 0.9% 1,000 ML IV SCH (04:22)
[2021-07-31] MEDS: Docusate 100 MG CAP PO SCH ×2 (08:50→20:59)
[2021-07-31] MEDS: Ferrous Gluconate 324 MG TAB PO SCH (08:50)
[2021-07-31] MEDS: Carvedilol 25 MG TAB PO SCH ×2 (08:50→21:00)
[2021-07-31] MEDS: Folic Acid 1 MG TAB PO SCH (08:50)
[2021-07-31] MEDS: Baclofen 10 MG TAB PO SCH ×4 (08:50→21:00)
[2021-07-31] MEDS: Clopidogrel Bisulfate 75 MG TAB PO SCH (08:51)
[2021-07-31] MEDS: Ascorbic Acid 500 mg Chewable Tablet PO SCH (08:51)
[2021-07-31] MEDS: Escitalopram Oxalate 10 mg Tablet PO SCH (08:51)
[2021-07-31] MEDS: Multivitamin W/ Minerals 1 TAB PO SCH (08:51)
[2021-07-31] MEDS: Lantus 1000 UNITS/10 ML VIAL SC SCH (08:51)
[2021-07-31] MEDS: metFORMIN 500 MG TAB PO SCH ×2 (08:51→16:18)
[2021-07-31] MEDS: levETIRAcetam 500 mg/5 ml Oral Solution PO SCH ×2 (08:53→21:01)
[2021-07-31 17:00] LABS: #Eosinphils 0.1 thou/uL (0.0-0.7); #Lymphocytes 1.3 thou/uL (1.20-3.40); #Monocytes 0.9 thou/uL (0.11-0.59); #Neutrophils 11.7 thou/uL (1.40-6.50); %Basophils 0.2 % (0.0-1.0); %Eosinophils 0.8 % (0.0-10.0); %Lymphocytes 9.2 % (21.0-51.0); %Monocytes 6.6 % (0.0-10.0); %Neutrophils 83.3 % (42.0-75.0); Hemoglobin 7.7 g/dL (14.0-18.0); Mean Corpuscular HGB CONC 32.9 g/dL (32.0-36.0); Mean Corpuscular Hemoglobin 27.8 pg (27.0-31.0); Mean Corpuscular Volume 84.4 fL (78.0-98.0); Mean Platelet Volume 8.2 fL (7.4-10.4); Platelet Count 249 thou/uL (130-400); RBC Distribution Width 16.3 % (11.5-14.5); Red Blood Cell (RBC) Count 2.76 mill/uL (4.70-6.10)
[2021-07-31 17:21] LABS: ALT (SGPT) 10 U/L (8-55); AST (SGOT) 17 U/L (5-34); Albumin 2.4 g/dL (3.5-5.0); Alkaline Phosphatase 72 U/L (40-110); Anion Gap 13 mmol/L (10-20); BUN (Urea Nitrogen) 16 mg/dL (8.4-25.7); Bilirubin, Total 0.3 mg/dL (0.2-1.2); CRP (Inflammatory) 17.28 mg/dL (= or < 0.5); Calc. Creatinine Clearance 87 mL/min (70-130); Carbon Dioxide 27 mmol/L (22-29); Chloride 103 mmol/L (98-107); Globulin 3.7 g/dL (2.4-3.5); Glucose 152 mg/dL (70-105); Magnesium 1.6 mg/dL (1.6-2.6); Phosphorus 2.7 mg/dL (2.3-4.7); Potassium 3.9 mmol/L (3.5-5.1); Protein, Total 6.1 g/dL (6.0-8.3); Sodium 139 mmol/L (136-145)
[2021-07-31] MEDS: Tamsulosin HCl 0.4 MG CAP PO SCH (21:01)
[2021-07-31] MEDS: Guaifenesin DM 100-10/5 ML UDCUP PO PRN (21:05)
[2021-07-31] MEDS: Rosuvastatin 20 MG TAB PO SCH (21:05)
[2021-08-01] MEDS: Acetaminophen 325 MG TAB PO PRN ×2 (05:54→20:29)
[2021-08-01 07:14] LABS: #Eosinphils 0.1 thou/uL (0.0-0.7); #Lymphocytes 1.2 thou/uL (1.20-3.40); #Neutrophils 9.8 thou/uL (1.40-6.50); %Eosinophils 1.1 % (0.0-10.0); %Lymphocytes 10.2 % (21.0-51.0); %Monocytes 8.2 % (0.0-10.0); %Neutrophils 80.5 % (42.0-75.0); Hemoglobin 6.8 g/dL (14.0-18.0); Mean Corpuscular HGB CONC 31.4 g/dL (32.0-36.0); Mean Corpuscular Hemoglobin 26.7 pg (27.0-31.0); Mean Corpuscular Volume 85.1 fL (78.0-98.0); Mean Platelet Volume 8.5 fL (7.4-10.4); Platelet Count 215 thou/uL (130-400); RBC Distribution Width 16.4 % (11.5-14.5); Red Blood Cell (RBC) Count 2.53 mill/uL (4.70-6.10); White Blood Cell (WBC) Count 12.2 thou/uL (4.8-10.8)
[2021-08-01 07:30] LABS: Anion Gap 12 mmol/L (10-20); BUN (Urea Nitrogen) 16 mg/dL (8.4-25.7); Calc. Creatinine Clearance 90 mL/min (70-130); Calcium 8.3 mg/dL (7.8-10.44); Carbon Dioxide 26 mmol/L (22-29); Chloride 103 mmol/L (98-107); Glucose 133 mg/dL (70-105); Magnesium 1.6 mg/dL (1.6-2.6); Phosphorus 2.6 mg/dL (2.3-4.7); Potassium 3.8 mmol/L (3.5-5.1); Sodium 137 mmol/L (136-145)
[2021-08-01] MEDS ORDERED: Meropenem 1 GM in Sodium Chloride 0.9% 100 ML IVPB SCH ×2 (09:45→14:00)
[2021-08-01] MEDS ORDERED: MEROPENEM 1 GM/50 ML 1 GM in Premix Bag 1 BAG IVPB SCH ×2 (09:45→18:00)
[2021-08-01] MEDS: Folic Acid 1 MG TAB PO SCH (10:05)
[2021-08-01] MEDS: metFORMIN 500 MG TAB PO SCH ×2 (10:05→16:53)
[2021-08-01] MEDS: Multivitamin W/ Minerals 1 TAB PO SCH (10:05)
[2021-08-01] MEDS: Baclofen 10 MG TAB PO SCH ×4 (10:05→20:28)
[2021-08-01] MEDS: Ascorbic Acid 500 mg Chewable Tablet PO SCH (10:06)
[2021-08-01] MEDS: Ferrous Gluconate 324 MG TAB PO SCH (10:06)
[2021-08-01] MEDS: Escitalopram Oxalate 10 mg Tablet PO SCH (10:07)
[2021-08-01] MEDS: levETIRAcetam 500 mg/5 ml Oral Solution PO SCH ×2 (10:08→20:31)
[2021-08-01] MEDS: Carvedilol 25 MG TAB PO SCH ×2 (10:10→20:28)
[2021-08-01] MEDS: Docusate 100 MG CAP PO SCH ×2 (10:13→20:29)
[2021-08-01] MEDS: Triple Antibiotic Oint 1 GM Packet TOP SCH (10:14)
[2021-08-01] MEDS: Lantus 1000 UNITS/10 ML VIAL SC SCH (10:15)
[2021-08-01] MEDS: Clopidogrel Bisulfate 75 MG TAB PO SCH (10:32)
[2021-08-01] MEDS: Meropenem 1 GM in Sodium Chloride 0.9% 100 ML IVPB SCH (17:12)
[2021-08-01] MEDS: Tamsulosin HCl 0.4 MG CAP PO SCH (20:31)
[2021-08-01] MEDS: Rosuvastatin 20 MG TAB PO SCH (20:31)
[2021-08-01] MEDS: Guaifenesin DM 100-10/5 ML UDCUP PO PRN (21:01)
[2021-08-02] MEDS: Meropenem 1 GM in Sodium Chloride 0.9% 100 ML IVPB SCH ×4 (02:40→21:01)
[2021-08-02 06:53] LABS: #Eosinphils 0.2 thou/uL (0.0-0.7); #Lymphocytes 1.4 thou/uL (1.20-3.40); #Monocytes 0.8 thou/uL (0.11-0.59); #Neutrophils 7.6 thou/uL (1.40-6.50); %Basophils 0.3 % (0.0-1.0); %Eosinophils 2.4 % (0.0-10.0); %Lymphocytes 13.6 % (21.0-51.0); %Neutrophils 75.8 % (42.0-75.0); Hemoglobin 8.1 g/dL (14.0-18.0); Mean Corpuscular HGB CONC 33.2 g/dL (32.0-36.0); Mean Corpuscular Hemoglobin 28.2 pg (27.0-31.0); Mean Corpuscular Volume 85.1 fL (78.0-98.0); Mean Platelet Volume 8.1 fL (7.4-10.4); Platelet Count 232 thou/uL (130-400); RBC Distribution Width 15.9 % (11.5-14.5); Red Blood Cell (RBC) Count 2.86 mill/uL (4.70-6.10); White Blood Cell (WBC) Count 10.1 thou/uL (4.8-10.8)
[2021-08-02 07:14] LABS: ALT (SGPT) 14 U/L (8-55); AST (SGOT) 17 U/L (5-34); Albumin 2.3 g/dL (3.5-5.0); Alkaline Phosphatase 75 U/L (40-110); Anion Gap 12 mmol/L (10-20); BUN (Urea Nitrogen) 20 mg/dL (8.4-25.7); Bilirubin, Total 0.5 mg/dL (0.2-1.2); Calc. Creatinine Clearance 86 mL/min (70-130); Calcium 8.4 mg/dL (7.8-10.44); Carbon Dioxide 27 mmol/L (22-29); Chloride 102 mmol/L (98-107); Globulin 4.3 g/dL (2.4-3.5); Glucose 183 mg/dL (70-105); Magnesium 1.5 mg/dL (1.6-2.6); Phosphorus 2.2 mg/dL (2.3-4.7); Potassium 3.8 mmol/L (3.5-5.1); Protein, Total 6.6 g/dL (6.0-8.3); Sodium 137 mmol/L (136-145)
[2021-08-02] MEDS ORDERED: Magnesium Sulfate 4 GM in Sodium Chloride 0.9% 250 ML 250 ML IVPB SCH (08:15)
[2021-08-02] MEDS: levETIRAcetam 500 mg/5 ml Oral Solution PO SCH ×2 (09:02→20:53)
[2021-08-02] MEDS: Folic Acid 1 MG TAB PO SCH (09:04)
[2021-08-02] MEDS: Ascorbic Acid 500 mg Chewable Tablet PO SCH (09:04)
[2021-08-02] MEDS: Clopidogrel Bisulfate 75 MG TAB PO SCH (09:04)
[2021-08-02] MEDS: Baclofen 10 MG TAB PO SCH ×4 (09:04→20:54)
[2021-08-02] MEDS: Multivitamin W/ Minerals 1 TAB PO SCH (09:04)
[2021-08-02] MEDS: Escitalopram Oxalate 10 mg Tablet PO SCH (09:06)
[2021-08-02] MEDS: Ferrous Gluconate 324 MG TAB PO SCH (09:06)
[2021-08-02] MEDS: PHOS-NAK 1 PKT PACK PO SCH ×3 (09:06→20:54)
[2021-08-02] MEDS: metFORMIN 500 MG TAB PO SCH ×2 (09:06→17:48)
[2021-08-02] MEDS: Triple Antibiotic Oint 1 GM Packet TOP SCH (09:06)
[2021-08-02] MEDS: Docusate 100 MG CAP PO SCH ×2 (09:12→20:54)
[2021-08-02] MEDS: Lantus 1000 UNITS/10 ML VIAL SC SCH (09:12)
[2021-08-02] MEDS: Carvedilol 25 MG TAB PO SCH ×2 (09:15→20:53)
[2021-08-02] MEDS: Guaifenesin DM 100-10/5 ML UDCUP PO PRN (17:48)
[2021-08-02] MEDS: Rosuvastatin 20 MG TAB PO SCH (20:54)
[2021-08-02] MEDS: Tamsulosin HCl 0.4 MG CAP PO SCH (20:54)
[2021-08-02] MEDS: HumaLOG 300 UNITS/3 ML VIAL SC PRN (21:12)
[2021-08-03] MEDS: Meropenem 1 GM in Sodium Chloride 0.9% 100 ML IVPB SCH ×3 (05:53→22:14)
[2021-08-03] MEDS: HumaLOG 300 UNITS/3 ML VIAL SC PRN ×2 (05:58→12:50)
[2021-08-03 07:56] LABS: #Eosinphils 0.2 thou/uL (0.0-0.7); #Lymphocytes 1.6 thou/uL (1.20-3.40); #Monocytes 0.9 thou/uL (0.11-0.59); #Neutrophils 8.6 thou/uL (1.40-6.50); %Basophils 0.4 % (0.0-1.0); %Lymphocytes 14.1 % (21.0-51.0); %Monocytes 8.1 % (0.0-10.0); %Neutrophils 75.4 % (42.0-75.0); Hemoglobin 8.2 g/dL (14.0-18.0); Mean Corpuscular HGB CONC 33.3 g/dL (32.0-36.0); Mean Corpuscular Hemoglobin 28.6 pg (27.0-31.0); Mean Corpuscular Volume 85.8 fL (78.0-98.0); Mean Platelet Volume 8.7 fL (7.4-10.4); Platelet Count 217 thou/uL (130-400); RBC Distribution Width 16.2 % (11.5-14.5); Red Blood Cell (RBC) Count 2.86 mill/uL (4.70-6.10); White Blood Cell (WBC) Count 11.4 thou/uL (4.8-10.8)
[2021-08-03] MEDS: Baclofen 10 MG TAB PO SCH ×4 (08:57→21:48)
[2021-08-03] MEDS: metFORMIN 500 MG TAB PO SCH ×2 (08:57→16:01)
[2021-08-03] MEDS: Carvedilol 25 MG TAB PO SCH ×2 (08:57→21:48)
[2021-08-03] MEDS: Ferrous Gluconate 324 MG TAB PO SCH (08:57)
[2021-08-03] MEDS: Ascorbic Acid 500 mg Chewable Tablet PO SCH (08:57)
[2021-08-03] MEDS: Escitalopram Oxalate 10 mg Tablet PO SCH (08:58)
[2021-08-03] MEDS: levETIRAcetam 500 mg/5 ml Oral Solution PO SCH ×2 (08:58→21:48)
[2021-08-03] MEDS: Multivitamin W/ Minerals 1 TAB PO SCH (08:58)
[2021-08-03] MEDS: Clopidogrel Bisulfate 75 MG TAB PO SCH (08:58)
[2021-08-03] MEDS: Folic Acid 1 MG TAB PO SCH (08:58)
[2021-08-03] MEDS: PHOS-NAK 1 PKT PACK PO SCH ×3 (08:59→16:00)
[2021-08-03] MEDS: Docusate 100 MG CAP PO SCH ×2 (08:59→21:49)
[2021-08-03] MEDS: Lantus 1000 UNITS/10 ML VIAL SC SCH (09:01)
[2021-08-03] MEDS: Triple Antibiotic Oint 1 GM Packet TOP SCH (09:07)
[2021-08-03 09:21] LABS: ALT (SGPT) 11 U/L (8-55); AST (SGOT) 14 U/L (5-34); Albumin 2.3 g/dL (3.5-5.0); Alkaline Phosphatase 74 U/L (40-110); Anion Gap 12 mmol/L (10-20); BUN (Urea Nitrogen) 21 mg/dL (8.4-25.7); Bilirubin, Total 0.3 mg/dL (0.2-1.2); Calc. Creatinine Clearance 91 mL/min (70-130); Calcium 8.5 mg/dL (7.8-10.44); Carbon Dioxide 29 mmol/L (22-29); Chloride 101 mmol/L (98-107); Globulin 4.3 g/dL (2.4-3.5); Glucose 179 mg/dL (70-105); Magnesium 1.8 mg/dL (1.6-2.6); Potassium 3.8 mmol/L (3.5-5.1); Protein, Total 6.6 g/dL (6.0-8.3); Sodium 138 mmol/L (136-145)
[2021-08-03 09:28] LABS: Phosphorus 1.8 mg/dL (2.3-4.7)
[2021-08-03] MEDS: Magnesium Oxide 400 MG TAB PO SCH (21:48)
[2021-08-03] MEDS: Tamsulosin HCl 0.4 MG CAP PO SCH (21:48)
[2021-08-03] MEDS: Rosuvastatin 20 MG TAB PO SCH (21:48)
[2021-08-04] MEDS: Meropenem 1 GM in Sodium Chloride 0.9% 100 ML IVPB SCH ×3 (05:24→23:14)
[2021-08-04] MEDS: PHOS-NAK 1 PKT PACK PO SCH (08:39)
[2021-08-04] MEDS: metFORMIN 500 MG TAB PO SCH ×2 (08:39→17:00)
[2021-08-04] MEDS: Ascorbic Acid 500 mg Chewable Tablet PO SCH (08:39)
[2021-08-04] MEDS: Baclofen 10 MG TAB PO SCH ×4 (08:39→21:33)
[2021-08-04] MEDS: Ferrous Gluconate 324 MG TAB PO SCH (08:39)
[2021-08-04] MEDS: Escitalopram Oxalate 10 mg Tablet PO SCH (08:40)
[2021-08-04] MEDS: Carvedilol 25 MG TAB PO SCH ×2 (08:40→21:35)
[2021-08-04] MEDS: Magnesium Oxide 400 MG TAB PO SCH ×2 (08:40→21:33)
[2021-08-04] MEDS: Multivitamin W/ Minerals 1 TAB PO SCH (08:40)
[2021-08-04] MEDS: Folic Acid 1 MG TAB PO SCH (08:40)
[2021-08-04] MEDS: Clopidogrel Bisulfate 75 MG TAB PO SCH (08:40)
[2021-08-04] MEDS: levETIRAcetam 500 mg/5 ml Oral Solution PO SCH ×2 (08:41→21:33)
[2021-08-04] MEDS: Lantus 1000 UNITS/10 ML VIAL SC SCH (08:41)
[2021-08-04] MEDS: Docusate 100 MG CAP PO SCH ×2 (08:42→21:33)
[2021-08-04] MEDS: Triple Antibiotic Oint 1 GM Packet TOP SCH (08:42)
[2021-08-04] MEDS ORDERED: VANCOMYCIN 1.25 GM/250 ML BAG 1.25 GM in Premix Bag 1 BAG IVPB SCH (10:00)
[2021-08-04] MEDS ORDERED: Vancomycin 1.5 GRAM/300 ML BAG 1.5 GM in Premix Bag 1 BAG IVPB SCH (10:00)
[2021-08-04 11:23] LABS: #Eosinphils 0.4 thou/uL (0.0-0.7); #Lymphocytes 1.6 thou/uL (1.20-3.40); #Monocytes 0.8 thou/uL (0.11-0.59); #Neutrophils 11.8 thou/uL (1.40-6.50); %Basophils 0.4 % (0.0-1.0); %Eosinophils 2.4 % (0.0-10.0); %Lymphocytes 11.2 % (21.0-51.0); %Monocytes 5.7 % (0.0-10.0); %Neutrophils 80.3 % (42.0-75.0); Mean Corpuscular HGB CONC 31.4 g/dL (32.0-36.0); Mean Corpuscular Hemoglobin 26.9 pg (27.0-31.0); Mean Corpuscular Volume 85.7 fL (78.0-98.0); Mean Platelet Volume 7.7 fL (7.4-10.4); Platelet Count 261 thou/uL (130-400); RBC Distribution Width 16.3 % (11.5-14.5); Red Blood Cell (RBC) Count 2.97 mill/uL (4.70-6.10); White Blood Cell (WBC) Count 14.6 thou/uL (4.8-10.8)
[2021-08-04 11:24] LABS: #Basophils 0.1 thou/uL (0.0-0.2)
[2021-08-04 11:44] LABS: ALT (SGPT) 15 U/L (8-55); AST (SGOT) 20 U/L (5-34); Albumin 2.3 g/dL (3.5-5.0); Alkaline Phosphatase 82 U/L (40-110); Anion Gap 14 mmol/L (10-20); BUN (Urea Nitrogen) 21 mg/dL (8.4-25.7); Bilirubin, Total 0.3 mg/dL (0.2-1.2); Calc. Creatinine Clearance 95 mL/min (70-130); Calcium 8.4 mg/dL (7.8-10.44); Carbon Dioxide 28 mmol/L (22-29); Chloride 99 mmol/L (98-107); Globulin 4.4 g/dL (2.4-3.5); Glucose 119 mg/dL (70-105); Magnesium 1.8 mg/dL (1.6-2.6); Phosphorus 2.2 mg/dL (2.3-4.7); Protein, Total 6.7 g/dL (6.0-8.3); Sodium 137 mmol/L (136-145)
[2021-08-04] MEDS: VANCOMYCIN 1.25 GM/250 ML BAG 1.25 GM in Premix Bag 1 BAG IVPB SCH (21:32)
[2021-08-04] MEDS: Tamsulosin HCl 0.4 MG CAP PO SCH (21:32)
[2021-08-04] MEDS: Rosuvastatin 20 MG TAB PO SCH (21:32)
[2021-08-05] MEDS: Meropenem 1 GM in Sodium Chloride 0.9% 100 ML IVPB SCH ×3 (05:13→23:08)
[2021-08-05 06:58] LABS: #Eosinphils 0.3 thou/uL (0.0-0.7); #Lymphocytes 1.1 thou/uL (1.20-3.40); #Monocytes 0.8 thou/uL (0.11-0.59); #Neutrophils 9.8 thou/uL (1.40-6.50); %Basophils 0.4 % (0.0-1.0); %Eosinophils 2.5 % (0.0-10.0); %Lymphocytes 8.9 % (21.0-51.0); %Monocytes 6.3 % (0.0-10.0); %Neutrophils 81.9 % (42.0-75.0); Hemoglobin 7.8 g/dL (14.0-18.0); Mean Corpuscular HGB CONC 32.2 g/dL (32.0-36.0); Mean Corpuscular Hemoglobin 27.5 pg (27.0-31.0); Mean Corpuscular Volume 85.4 fL (78.0-98.0); Mean Platelet Volume 8.2 fL (7.4-10.4); Platelet Count 264 thou/uL (130-400); RBC Distribution Width 16.4 % (11.5-14.5); Red Blood Cell (RBC) Count 2.85 mill/uL (4.70-6.10)
[2021-08-05 07:07] LABS: ALT (SGPT) 14 U/L (8-55); AST (SGOT) 19 U/L (5-34); Albumin 2.2 g/dL (3.5-5.0); Alkaline Phosphatase 75 U/L (40-110); Anion Gap 11 mmol/L (10-20); BUN (Urea Nitrogen) 24 mg/dL (8.4-25.7); Bilirubin, Total 0.3 mg/dL (0.2-1.2); Calc. Creatinine Clearance 93 mL/min (70-130); Calcium 8.5 mg/dL (7.8-10.44); Carbon Dioxide 31 mmol/L (22-29); Chloride 100 mmol/L (98-107); Globulin 4.2 g/dL (2.4-3.5); Glucose 142 mg/dL (70-105); Magnesium 1.6 mg/dL (1.6-2.6); Phosphorus 2.2 mg/dL (2.3-4.7); Potassium 3.9 mmol/L (3.5-5.1); Protein, Total 6.4 g/dL (6.0-8.3); Sodium 138 mmol/L (136-145)
[2021-08-05] MEDS: Ascorbic Acid 500 mg Chewable Tablet PO SCH (08:49)
[2021-08-05] MEDS: Ferrous Gluconate 324 MG TAB PO SCH (08:49)
[2021-08-05] MEDS: Baclofen 10 MG TAB PO SCH ×4 (08:49→20:49)
[2021-08-05] MEDS: Multivitamin W/ Minerals 1 TAB PO SCH (08:49)
[2021-08-05] MEDS: metFORMIN 500 MG TAB PO SCH ×2 (08:49→17:26)
[2021-08-05] MEDS: Folic Acid 1 MG TAB PO SCH (08:50)
[2021-08-05] MEDS: Magnesium Oxide 400 MG TAB PO SCH ×2 (08:50→20:49)
[2021-08-05] MEDS: Docusate 100 MG CAP PO SCH ×2 (08:50→20:48)
[2021-08-05] MEDS: Clopidogrel Bisulfate 75 MG TAB PO SCH (08:50)
[2021-08-05] MEDS: levETIRAcetam 500 mg/5 ml Oral Solution PO SCH ×2 (08:50→20:52)
[2021-08-05] MEDS: Escitalopram Oxalate 10 mg Tablet PO SCH (08:50)
[2021-08-05] MEDS: Carvedilol 25 MG TAB PO SCH ×2 (08:50→20:53)
[2021-08-05] MEDS: Triple Antibiotic Oint 1 GM Packet TOP SCH (08:51)
[2021-08-05] MEDS: Lantus 1000 UNITS/10 ML VIAL SC SCH (08:52)
[2021-08-05] MEDS: Guaifenesin DM 100-10/5 ML UDCUP PO PRN (09:49)
[2021-08-05] MEDS: Acetaminophen 325 MG TAB PO PRN ×2 (09:51→20:48)
[2021-08-05] MEDS: VANCOMYCIN 1.25 GM/250 ML BAG 1.25 GM in Premix Bag 1 BAG IVPB SCH ×2 (10:46→22:24)
[2021-08-05 15:12] LABS: SARS-CoV-2 PCR by NAA DETECTED (NotDetected)
[2021-08-05] MEDS: Rosuvastatin 20 MG TAB PO SCH (20:51)
[2021-08-05] MEDS: Tamsulosin HCl 0.4 MG CAP PO SCH (20:51)
[2021-08-05 21:46] LABS: Vancomycin, Trough 29.2 ug/mL
[2021-08-06] MEDS ORDERED: Dextrose 50% Abboject 50 ML SYRINGE ONE (04:54)
[2021-08-06] MEDS: Meropenem 1 GM in Sodium Chloride 0.9% 100 ML IVPB SCH ×3 (05:51→23:00)
[2021-08-06 07:53] LABS: #Basophils 0.1 thou/uL (0.0-0.2); #Eosinphils 0.2 thou/uL (0.0-0.7); #Lymphocytes 0.7 thou/uL (1.20-3.40); #Monocytes 0.9 thou/uL (0.11-0.59); #Neutrophils 8.3 thou/uL (1.40-6.50); %Basophils 0.7 % (0.0-1.0); %Eosinophils 1.6 % (0.0-10.0); %Lymphocytes 6.8 % (21.0-51.0); %Monocytes 8.6 % (0.0-10.0); %Neutrophils 82.3 % (42.0-75.0); Mean Corpuscular HGB CONC 32.6 g/dL (32.0-36.0); Mean Corpuscular Hemoglobin 27.6 pg (27.0-31.0); Mean Corpuscular Volume 84.6 fL (78.0-98.0); Mean Platelet Volume 7.9 fL (7.4-10.4); Platelet Count 244 thou/uL (130-400); RBC Distribution Width 16.4 % (11.5-14.5); Red Blood Cell (RBC) Count 3.28 mill/uL (4.70-6.10); White Blood Cell (WBC) Count 10.1 thou/uL (4.8-10.8)
[2021-08-06 08:11] LABS: ALT (SGPT) 16 U/L (8-55); AST (SGOT) 27 U/L (5-34); Albumin 2.4 g/dL (3.5-5.0); Alkaline Phosphatase 73 U/L (40-110); Anion Gap 16 mmol/L (10-20); BUN (Urea Nitrogen) 20 mg/dL (8.4-25.7); Bilirubin, Total 0.4 mg/dL (0.2-1.2); Calc. Creatinine Clearance 111 mL/min (70-130); Calcium 8.6 mg/dL (7.8-10.44); Carbon Dioxide 25 mmol/L (22-29); Chloride 98 mmol/L (98-107); Globulin 4.5 g/dL (2.4-3.5); Glucose 149 mg/dL (70-105); Magnesium 1.7 mg/dL (1.6-2.6); Phosphorus 2.6 mg/dL (2.3-4.7); Potassium 3.8 mmol/L (3.5-5.1); Protein, Total 6.9 g/dL (6.0-8.3); Sodium 135 mmol/L (136-145)
[2021-08-06] MEDS: Baclofen 10 MG TAB PO SCH ×4 (08:50→21:25)
[2021-08-06] MEDS: levETIRAcetam 500 mg/5 ml Oral Solution PO SCH ×2 (08:51→21:25)
[2021-08-06] MEDS: Ascorbic Acid 500 mg Chewable Tablet PO SCH (08:51)
[2021-08-06] MEDS: metFORMIN 500 MG TAB PO SCH ×2 (08:51→17:33)
[2021-08-06] MEDS: Magnesium Oxide 400 MG TAB PO SCH ×2 (08:51→21:26)
[2021-08-06] MEDS: Clopidogrel Bisulfate 75 MG TAB PO SCH (08:51)
[2021-08-06] MEDS: Escitalopram Oxalate 10 mg Tablet PO SCH (08:51)
[2021-08-06] MEDS: Multivitamin W/ Minerals 1 TAB PO SCH (08:51)
[2021-08-06] MEDS: Docusate 100 MG CAP PO SCH ×2 (08:51→21:26)
[2021-08-06] MEDS: Folic Acid 1 MG TAB PO SCH (08:51)
[2021-08-06] MEDS: Ferrous Gluconate 324 MG TAB PO SCH (08:51)
[2021-08-06] MEDS: Triple Antibiotic Oint 1 GM Packet TOP SCH (08:52)
[2021-08-06] MEDS: Carvedilol 25 MG TAB PO SCH ×2 (08:52→21:26)
[2021-08-06] MEDS ORDERED: Vancomycin HCl 750 MG in Sodium Chloride 0.9% 250 ML 250 ML IVPB SCH (10:00)
[2021-08-06] MEDS: Lantus 1000 UNITS/10 ML VIAL SC SCH (10:40)
[2021-08-06 12:55] LABS: Vancomycin, Random 24.2 ug/mL (See Comment)
[2021-08-06] MEDS: Guaifenesin DM 100-10/5 ML UDCUP PO PRN (13:00)
[2021-08-06] MEDS: HumaLOG 300 UNITS/3 ML VIAL SC PRN (13:05)
[2021-08-06] MEDS ORDERED: HYDROcodone/Acetaminophen 5/325 mg Tablet PO PRN (14:41)
[2021-08-06] MEDS: Rosuvastatin 20 MG TAB PO SCH (21:25)
[2021-08-06] MEDS: Vancomycin 1 GM in Premix Bag 1 BAG IVPB SCH (21:26)
[2021-08-06] MEDS: Tamsulosin HCl 0.4 MG CAP PO SCH (21:26)
[2021-08-07] MEDS: Acetaminophen 325 MG TAB PO PRN (00:56)
[2021-08-07] MEDS: Meropenem 1 GM in Sodium Chloride 0.9% 100 ML IVPB SCH ×3 (05:45→21:34)
[2021-08-07] MEDS: Folic Acid 1 MG TAB PO SCH (08:51)
[2021-08-07] MEDS: Carvedilol 25 MG TAB PO SCH ×2 (08:51→20:27)
[2021-08-07] MEDS: Baclofen 10 MG TAB PO SCH ×4 (08:51→20:29)
[2021-08-07] MEDS: Docusate 100 MG CAP PO SCH ×2 (08:51→20:29)
[2021-08-07] MEDS: Ferrous Gluconate 324 MG TAB PO SCH (08:51)
[2021-08-07] MEDS: levETIRAcetam 500 mg/5 ml Oral Solution PO SCH ×2 (08:51→20:30)
[2021-08-07] MEDS: metFORMIN 500 MG TAB PO SCH ×2 (08:51→18:27)
[2021-08-07] MEDS: Multivitamin W/ Minerals 1 TAB PO SCH (08:51)
[2021-08-07] MEDS: Ascorbic Acid 500 mg Chewable Tablet PO SCH (08:52)
[2021-08-07] MEDS: Clopidogrel Bisulfate 75 MG TAB PO SCH (08:52)
[2021-08-07] MEDS: Escitalopram Oxalate 10 mg Tablet PO SCH (08:52)
[2021-08-07] MEDS: Magnesium Oxide 400 MG TAB PO SCH ×2 (08:52→20:29)
[2021-08-07] MEDS: Triple Antibiotic Oint 1 GM Packet TOP SCH (08:54)
[2021-08-07] MEDS: Vancomycin 1 GM in Premix Bag 1 BAG IVPB SCH ×2 (08:54→21:01)
[2021-08-07] MEDS: Lantus 1000 UNITS/10 ML VIAL SC SCH (08:56)
[2021-08-07 10:20] LABS: #Eosinphils 0.1 thou/uL (0.0-0.7); #Lymphocytes 1.2 thou/uL (1.20-3.40); #Monocytes 0.9 thou/uL (0.11-0.59); %Basophils 0.5 % (0.0-1.0); %Eosinophils 1.2 % (0.0-10.0); %Lymphocytes 16.3 % (21.0-51.0); %Monocytes 12.3 % (0.0-10.0); %Neutrophils 69.7 % (42.0-75.0); Hemoglobin 9.1 g/dL (14.0-18.0); Mean Corpuscular HGB CONC 31.9 g/dL (32.0-36.0); Mean Corpuscular Hemoglobin 27.3 pg (27.0-31.0); Mean Corpuscular Volume 85.3 fL (78.0-98.0); Mean Platelet Volume 7.9 fL (7.4-10.4); Platelet Count 275 thou/uL (130-400); RBC Distribution Width 16.2 % (11.5-14.5); Red Blood Cell (RBC) Count 3.33 mill/uL (4.70-6.10); White Blood Cell (WBC) Count 7.2 thou/uL (4.8-10.8)
[2021-08-07 10:38] LABS: ALT (SGPT) 19 U/L (8-55); AST (SGOT) 30 U/L (5-34); Albumin 2.4 g/dL (3.5-5.0); Alkaline Phosphatase 67 U/L (40-110); Anion Gap 15 mmol/L (10-20); BUN (Urea Nitrogen) 17 mg/dL (8.4-25.7); Bilirubin, Total 0.4 mg/dL (0.2-1.2); Calc. Creatinine Clearance 117 mL/min (70-130); Calcium 8.5 mg/dL (7.8-10.44); Carbon Dioxide 27 mmol/L (22-29); Chloride 96 mmol/L (98-107); Globulin 4.5 g/dL (2.4-3.5); Glucose 140 mg/dL (70-105); Magnesium 1.8 mg/dL (1.6-2.6); Phosphorus 2.6 mg/dL (2.3-4.7); Potassium 3.9 mmol/L (3.5-5.1); Protein, Total 6.9 g/dL (6.0-8.3); Sodium 134 mmol/L (136-145)
[2021-08-07] MEDS: Guaifenesin DM 100-10/5 ML UDCUP PO PRN ×2 (11:08→20:29)
[2021-08-07] MEDS: Tamsulosin HCl 0.4 MG CAP PO SCH (20:27)
[2021-08-07] MEDS: Rosuvastatin 20 MG TAB PO SCH (20:28)
[2021-08-08] MEDS: Meropenem 1 GM in Sodium Chloride 0.9% 100 ML IVPB SCH ×3 (05:58→21:14)
[2021-08-08] MEDS: levETIRAcetam 500 mg/5 ml Oral Solution PO SCH ×2 (10:13→21:13)
[2021-08-08] MEDS: Docusate 100 MG CAP PO SCH ×2 (10:13→21:13)
[2021-08-08] MEDS: Ascorbic Acid 500 mg Chewable Tablet PO SCH (10:13)
[2021-08-08] MEDS: Escitalopram Oxalate 10 mg Tablet PO SCH (10:14)
[2021-08-08] MEDS: Magnesium Oxide 400 MG TAB PO SCH ×2 (10:14→21:13)
[2021-08-08] MEDS: Baclofen 10 MG TAB PO SCH ×4 (10:14→21:13)
[2021-08-08] MEDS: Triple Antibiotic Oint 1 GM Packet TOP SCH (10:14)
[2021-08-08] MEDS: Folic Acid 1 MG TAB PO SCH (10:14)
[2021-08-08] MEDS: Carvedilol 25 MG TAB PO SCH ×2 (10:14→21:13)
[2021-08-08] MEDS: Ferrous Gluconate 324 MG TAB PO SCH (10:14)
[2021-08-08] MEDS: Clopidogrel Bisulfate 75 MG TAB PO SCH (10:14)
[2021-08-08] MEDS: Multivitamin W/ Minerals 1 TAB PO SCH (10:14)
[2021-08-08] MEDS: Vancomycin 1 GM in Premix Bag 1 BAG IVPB SCH (10:15)
[2021-08-08] MEDS: metFORMIN 500 MG TAB PO SCH ×2 (10:15→17:39)
[2021-08-08] MEDS: Guaifenesin DM 100-10/5 ML UDCUP PO PRN ×2 (11:00→21:57)
[2021-08-08 11:15] LABS: #Basophils 0.1 thou/uL (0.0-0.2); #Eosinphils 0.1 thou/uL (0.0-0.7); #Lymphocytes 1.4 thou/uL (1.20-3.40); #Monocytes 0.6 thou/uL (0.11-0.59); #Neutrophils 5.3 thou/uL (1.40-6.50); %Basophils 0.9 % (0.0-1.0); %Eosinophils 0.8 % (0.0-10.0); %Neutrophils 71.3 % (42.0-75.0); Hemoglobin 7.5 g/dL (14.0-18.0); Mean Corpuscular HGB CONC 31.5 g/dL (32.0-36.0); Mean Corpuscular Hemoglobin 26.7 pg (27.0-31.0); Mean Corpuscular Volume 84.7 fL (78.0-98.0); Mean Platelet Volume 7.7 fL (7.4-10.4); Platelet Count 254 thou/uL (130-400); RBC Distribution Width 16.2 % (11.5-14.5); Red Blood Cell (RBC) Count 2.82 mill/uL (4.70-6.10); White Blood Cell (WBC) Count 7.4 thou/uL (4.8-10.8)
[2021-08-08 11:37] LABS: Vancomycin, Trough 23.8 ug/mL
[2021-08-08 11:38] LABS: ALT (SGPT) 21 U/L (8-55); AST (SGOT) 32 U/L (5-34); Albumin 2.2 g/dL (3.5-5.0); Alkaline Phosphatase 74 U/L (40-110); Anion Gap 12 mmol/L (10-20); BUN (Urea Nitrogen) 25 mg/dL (8.4-25.7); Bilirubin, Total 0.3 mg/dL (0.2-1.2); Calc. Creatinine Clearance 103 mL/min (70-130); Calcium 8.1 mg/dL (7.8-10.44); Carbon Dioxide 29 mmol/L (22-29); Chloride 95 mmol/L (98-107); Globulin 4.3 g/dL (2.4-3.5); Glucose 167 mg/dL (70-105); Magnesium 1.9 mg/dL (1.6-2.6); Phosphorus 2.5 mg/dL (2.3-4.7); Potassium 4.2 mmol/L (3.5-5.1); Protein, Total 6.5 g/dL (6.0-8.3); Sodium 132 mmol/L (136-145)
[2021-08-08] MEDS: VANCOMYCIN 1.75 GM/350 ML BAG 1.75 GM in Premix Bag 1 BAG IVPB SCH (21:12)
[2021-08-08] MEDS: Tamsulosin HCl 0.4 MG CAP PO SCH (21:13)
[2021-08-08] MEDS: Rosuvastatin 20 MG TAB PO SCH (21:13)
[2021-08-09] MEDS: Meropenem 1 GM in Sodium Chloride 0.9% 100 ML IVPB SCH ×2 (06:26→13:42)
[2021-08-09] MEDS: Ascorbic Acid 500 mg Chewable Tablet PO SCH (09:29)
[2021-08-09] MEDS: Escitalopram Oxalate 10 mg Tablet PO SCH (09:30)
[2021-08-09] MEDS: Baclofen 10 MG TAB PO SCH ×4 (09:30→21:53)
[2021-08-09] MEDS: Folic Acid 1 MG TAB PO SCH (09:30)
[2021-08-09] MEDS: metFORMIN 500 MG TAB PO SCH ×2 (09:30→18:03)
[2021-08-09] MEDS: Clopidogrel Bisulfate 75 MG TAB PO SCH (09:30)
[2021-08-09] MEDS: Multivitamin W/ Minerals 1 TAB PO SCH (09:30)
[2021-08-09] MEDS: levETIRAcetam 500 mg/5 ml Oral Solution PO SCH ×2 (09:31→21:54)
[2021-08-09] MEDS: Magnesium Oxide 400 MG TAB PO SCH ×2 (09:31→21:54)
[2021-08-09] MEDS: Ferrous Gluconate 324 MG TAB PO SCH (09:31)
[2021-08-09] MEDS: Triple Antibiotic Oint 1 GM Packet TOP SCH (09:32)
[2021-08-09] MEDS: Carvedilol 25 MG TAB PO SCH ×2 (09:33→21:54)
[2021-08-09] MEDS: Docusate 100 MG CAP PO SCH ×3 (09:33→22:10)
[2021-08-09] MEDS: HumaLOG 300 UNITS/3 ML VIAL SC PRN ×2 (13:42→18:03)
[2021-08-09] MEDS: VANCOMYCIN 1.75 GM/350 ML BAG 1.75 GM in Premix Bag 1 BAG IVPB SCH (21:53)
[2021-08-09] MEDS: Tamsulosin HCl 0.4 MG CAP PO SCH (21:53)
[2021-08-09] MEDS: Rosuvastatin 20 MG TAB PO SCH (21:54)
[2021-08-09] MEDS: Guaifenesin DM 100-10/5 ML UDCUP PO PRN (22:11)
[2021-08-10] MEDS: Meropenem 1 GM in Sodium Chloride 0.9% 100 ML IVPB SCH ×4 (00:10→22:50)
[2021-08-10 06:32] LABS: #Eosinphils 0.1 thou/uL (0.0-0.7); #Lymphocytes 1.1 thou/uL (1.20-3.40); #Monocytes 0.4 thou/uL (0.11-0.59); %Basophils 0.5 % (0.0-1.0); %Eosinophils 1.8 % (0.0-10.0); %Lymphocytes 13.6 % (21.0-51.0); %Monocytes 5.7 % (0.0-10.0); %Neutrophils 78.4 % (42.0-75.0); Hemoglobin 7.8 g/dL (14.0-18.0); Mean Corpuscular Hemoglobin 26.7 pg (27.0-31.0); Mean Corpuscular Volume 83.5 fL (78.0-98.0); Mean Platelet Volume 7.8 fL (7.4-10.4); Platelet Count 252 thou/uL (130-400); Red Blood Cell (RBC) Count 2.91 mill/uL (4.70-6.10); White Blood Cell (WBC) Count 7.7 thou/uL (4.8-10.8)
[2021-08-10 06:47] LABS: Anion Gap 12 mmol/L (10-20); BUN (Urea Nitrogen) 20 mg/dL (8.4-25.7); Calc. Creatinine Clearance 112 mL/min (70-130); Calcium 8.2 mg/dL (7.8-10.44); Carbon Dioxide 29 mmol/L (22-29); Chloride 97 mmol/L (98-107); Glucose 209 mg/dL (70-105); Potassium 4.2 mmol/L (3.5-5.1); Sodium 134 mmol/L (136-145)
[2021-08-10] MEDS: levETIRAcetam 500 mg/5 ml Oral Solution PO SCH ×2 (09:19→21:11)
[2021-08-10] MEDS: Clopidogrel Bisulfate 75 MG TAB PO SCH (09:19)
[2021-08-10] MEDS: metFORMIN 500 MG TAB PO SCH ×2 (09:19→17:03)
[2021-08-10] MEDS: Multivitamin W/ Minerals 1 TAB PO SCH (09:20)
[2021-08-10] MEDS: Folic Acid 1 MG TAB PO SCH (09:20)
[2021-08-10] MEDS: Ascorbic Acid 500 mg Chewable Tablet PO SCH (09:20)
[2021-08-10] MEDS: Magnesium Oxide 400 MG TAB PO SCH ×2 (09:20→21:11)
[2021-08-10] MEDS: Escitalopram Oxalate 10 mg Tablet PO SCH (09:21)
[2021-08-10] MEDS: Baclofen 10 MG TAB PO SCH ×4 (09:21→21:11)
[2021-08-10] MEDS: Ferrous Gluconate 324 MG TAB PO SCH (09:21)
[2021-08-10] MEDS: Docusate 100 MG CAP PO SCH ×2 (09:22→21:11)
[2021-08-10] MEDS: Triple Antibiotic Oint 1 GM Packet TOP SCH (09:22)
[2021-08-10] MEDS: Carvedilol 25 MG TAB PO SCH ×2 (09:24→21:11)
[2021-08-10] MEDS: HumaLOG 300 UNITS/3 ML VIAL SC PRN ×2 (09:31→17:44)
[2021-08-10] MEDS: Acetaminophen 325 MG TAB PO PRN ×2 (17:34→21:15)
[2021-08-10] MEDS: Guaifenesin DM 100-10/5 ML UDCUP PO PRN ×2 (17:36→21:13)
[2021-08-10] MEDS: VANCOMYCIN 1.75 GM/350 ML BAG 1.75 GM in Premix Bag 1 BAG IVPB SCH (21:10)
[2021-08-10] MEDS: Rosuvastatin 20 MG TAB PO SCH (21:11)
[2021-08-10] MEDS: Tamsulosin HCl 0.4 MG CAP PO SCH (21:11)
[2021-08-10 22:22] LABS: Vancomycin, Trough 22.1 ug/mL
[2021-08-11] MEDS: Meropenem 1 GM in Sodium Chloride 0.9% 100 ML IVPB SCH ×3 (06:21→22:45)
[2021-08-11] MEDS: levETIRAcetam 500 mg/5 ml Oral Solution PO SCH ×2 (09:09→21:00)
[2021-08-11] MEDS: Baclofen 10 MG TAB PO SCH ×4 (09:10→21:00)
[2021-08-11] MEDS: Ascorbic Acid 500 mg Chewable Tablet PO SCH (09:10)
[2021-08-11] MEDS: Carvedilol 25 MG TAB PO SCH ×2 (09:10→21:00)
[2021-08-11] MEDS: Docusate 100 MG CAP PO SCH ×2 (09:11→21:00)
[2021-08-11] MEDS: Triple Antibiotic Oint 1 GM Packet TOP SCH (09:11)
[2021-08-11] MEDS: Multivitamin W/ Minerals 1 TAB PO SCH (09:11)
[2021-08-11] MEDS: Ferrous Gluconate 324 MG TAB PO SCH (09:11)
[2021-08-11] MEDS: Escitalopram Oxalate 10 mg Tablet PO SCH (09:11)
[2021-08-11] MEDS: Clopidogrel Bisulfate 75 MG TAB PO SCH (09:12)
[2021-08-11] MEDS: Folic Acid 1 MG TAB PO SCH (09:12)
[2021-08-11] MEDS: metFORMIN 500 MG TAB PO SCH ×2 (09:12→17:35)
[2021-08-11] MEDS: Magnesium Oxide 400 MG TAB PO SCH ×2 (09:12→21:00)
[2021-08-11] MEDS: HumaLOG 300 UNITS/3 ML VIAL SC PRN (12:41)
[2021-08-11] MEDS: VANCOMYCIN 1.25 GM/250 ML BAG 1.25 GM in Premix Bag 1 BAG IVPB SCH (20:59)
[2021-08-11] MEDS: Rosuvastatin 20 MG TAB PO SCH (21:00)
[2021-08-11] MEDS: Tamsulosin HCl 0.4 MG CAP PO SCH (21:00)
[2021-08-11] MEDS: Guaifenesin DM 100-10/5 ML UDCUP PO PRN (21:05)
[2021-08-12] MEDS: Meropenem 1 GM in Sodium Chloride 0.9% 100 ML IVPB SCH ×3 (05:56→23:25)
[2021-08-12] MEDS: levETIRAcetam 500 mg/5 ml Oral Solution PO SCH ×2 (09:16→21:43)
[2021-08-12] MEDS: Guaifenesin DM 100-10/5 ML UDCUP PO PRN ×2 (09:16→21:44)
[2021-08-12] MEDS: Triple Antibiotic Oint 1 GM Packet TOP SCH (09:16)
[2021-08-12] MEDS: Docusate 100 MG CAP PO SCH ×2 (09:16→21:43)
[2021-08-12] MEDS: Baclofen 10 MG TAB PO SCH ×4 (09:17→21:42)
[2021-08-12] MEDS: Multivitamin W/ Minerals 1 TAB PO SCH (09:17)
[2021-08-12] MEDS: Escitalopram Oxalate 10 mg Tablet PO SCH (09:17)
[2021-08-12] MEDS: Carvedilol 25 MG TAB PO SCH ×2 (09:17→21:44)
[2021-08-12] MEDS: Folic Acid 1 MG TAB PO SCH (09:17)
[2021-08-12] MEDS: Ascorbic Acid 500 mg Chewable Tablet PO SCH (09:17)
[2021-08-12] MEDS: Clopidogrel Bisulfate 75 MG TAB PO SCH (09:17)
[2021-08-12] MEDS: Ferrous Gluconate 324 MG TAB PO SCH (09:17)
[2021-08-12] MEDS: Magnesium Oxide 400 MG TAB PO SCH ×2 (09:17→21:42)
[2021-08-12] MEDS: metFORMIN 500 MG TAB PO SCH ×2 (09:18→17:05)
[2021-08-12] MEDS: HumaLOG 300 UNITS/3 ML VIAL SC PRN (17:06)
[2021-08-12] MEDS: Tamsulosin HCl 0.4 MG CAP PO SCH (21:42)
[2021-08-12] MEDS: Rosuvastatin 20 MG TAB PO SCH (21:42)
[2021-08-12] MEDS: VANCOMYCIN 1.25 GM/250 ML BAG 1.25 GM in Premix Bag 1 BAG IVPB SCH (21:42)
[2021-08-13] MEDS: Meropenem 1 GM in Sodium Chloride 0.9% 100 ML IVPB SCH ×3 (05:21→22:00)
[2021-08-13] MEDS: levETIRAcetam 500 mg/5 ml Oral Solution PO SCH ×2 (09:30→22:02)
[2021-08-13] MEDS: Guaifenesin DM 100-10/5 ML UDCUP PO PRN (09:30)
[2021-08-13] MEDS: Magnesium Oxide 400 MG TAB PO SCH ×2 (09:30→22:01)
[2021-08-13] MEDS: Ferrous Gluconate 324 MG TAB PO SCH (09:31)
[2021-08-13] MEDS: Baclofen 10 MG TAB PO SCH ×4 (09:32→22:02)
[2021-08-13] MEDS: Docusate 100 MG CAP PO SCH ×2 (09:32→21:54)
[2021-08-13] MEDS: Ascorbic Acid 500 mg Chewable Tablet PO SCH (09:32)
[2021-08-13] MEDS: Carvedilol 25 MG TAB PO SCH ×2 (09:33→22:01)
[2021-08-13] MEDS: Escitalopram Oxalate 10 mg Tablet PO SCH (09:33)
[2021-08-13] MEDS: Clopidogrel Bisulfate 75 MG TAB PO SCH (09:33)
[2021-08-13] MEDS: Folic Acid 1 MG TAB PO SCH (09:33)
[2021-08-13] MEDS: metFORMIN 500 MG TAB PO SCH ×2 (09:33→18:18)
[2021-08-13] MEDS: Multivitamin W/ Minerals 1 TAB PO SCH (09:33)
[2021-08-13] MEDS: Triple Antibiotic Oint 1 GM Packet TOP SCH (09:33)
[2021-08-13] MEDS: HumaLOG 300 UNITS/3 ML VIAL SC PRN (18:21)
[2021-08-13 18:44] LABS: #Lymphocytes 1.1 thou/uL (1.20-3.40); #Monocytes 0.3 thou/uL (0.11-0.59); #Neutrophils 4.2 thou/uL (1.40-6.50); %Basophils 0.2 % (0.0-1.0); %Eosinophils 0.3 % (0.0-10.0); %Lymphocytes 19.6 % (21.0-51.0); %Monocytes 4.8 % (0.0-10.0); %Neutrophils 75.2 % (42.0-75.0); Hemoglobin 7.7 g/dL (14.0-18.0); Mean Corpuscular HGB CONC 31.9 g/dL (32.0-36.0); Mean Corpuscular Hemoglobin 26.5 pg (27.0-31.0); Mean Corpuscular Volume 83.2 fL (78.0-98.0); Mean Platelet Volume 8.2 fL (7.4-10.4); Platelet Count 207 thou/uL (130-400); White Blood Cell (WBC) Count 5.6 thou/uL (4.8-10.8)
[2021-08-13 19:08] LABS: Anion Gap 10 mmol/L (10-20); BUN (Urea Nitrogen) 23 mg/dL (8.4-25.7); Calc. Creatinine Clearance 120 mL/min (70-130); Calcium 8.3 mg/dL (7.8-10.44); Carbon Dioxide 30 mmol/L (22-29); Chloride 99 mmol/L (98-107); Glucose 202 mg/dL (70-105); Sodium 135 mmol/L (136-145)
[2021-08-13 20:34] LABS: Vancomycin, Trough 17.8 ug/mL
[2021-08-13] MEDS: VANCOMYCIN 1.25 GM/250 ML BAG 1.25 GM in Premix Bag 1 BAG IVPB SCH (22:00)
[2021-08-13] MEDS: Tamsulosin HCl 0.4 MG CAP PO SCH (22:01)
[2021-08-13] MEDS: Rosuvastatin 20 MG TAB PO SCH (22:01)
[2021-08-13] MEDS: Acetaminophen 325 MG TAB PO PRN (22:01)
[2021-08-14] MEDS: Meropenem 1 GM in Sodium Chloride 0.9% 100 ML IVPB SCH ×3 (06:17→22:07)
[2021-08-14] MEDS: Baclofen 10 MG TAB PO SCH ×4 (09:38→22:09)
[2021-08-14] MEDS: Triple Antibiotic Oint 1 GM Packet TOP SCH (09:38)
[2021-08-14] MEDS: Guaifenesin DM 100-10/5 ML UDCUP PO PRN (09:38)
[2021-08-14] MEDS: Docusate 100 MG CAP PO SCH ×2 (09:38→22:11)
[2021-08-14] MEDS: levETIRAcetam 500 mg/5 ml Oral Solution PO SCH ×2 (09:38→22:08)
[2021-08-14] MEDS: Clopidogrel Bisulfate 75 MG TAB PO SCH (09:38)
[2021-08-14] MEDS: Ascorbic Acid 500 mg Chewable Tablet PO SCH (09:38)
[2021-08-14] MEDS: Magnesium Oxide 400 MG TAB PO SCH ×2 (09:38→22:11)
[2021-08-14] MEDS: Multivitamin W/ Minerals 1 TAB PO SCH (09:39)
[2021-08-14] MEDS: Folic Acid 1 MG TAB PO SCH (09:39)
[2021-08-14] MEDS: Ferrous Gluconate 324 MG TAB PO SCH (09:39)
[2021-08-14] MEDS: metFORMIN 500 MG TAB PO SCH ×2 (09:39→16:12)
[2021-08-14] MEDS: Escitalopram Oxalate 10 mg Tablet PO SCH (09:39)
[2021-08-14] MEDS: Carvedilol 25 MG TAB PO SCH (09:39)
[2021-08-14] MEDS: HumaLOG 300 UNITS/3 ML VIAL SC PRN (12:30)
[2021-08-14] MEDS: VANCOMYCIN 1.25 GM/250 ML BAG 1.25 GM in Premix Bag 1 BAG IVPB SCH (22:07)
[2021-08-14] MEDS: Acetaminophen 325 MG TAB PO PRN (22:08)
[2021-08-14] MEDS: Rosuvastatin 20 MG TAB PO SCH (22:09)
[2021-08-14] MEDS: Tamsulosin HCl 0.4 MG CAP PO SCH (22:09)
[2021-08-15] MEDS: Carvedilol 25 MG TAB PO SCH ×2 (04:48→09:48)
[2021-08-15] MEDS: Meropenem 1 GM in Sodium Chloride 0.9% 100 ML IVPB SCH (06:16)
[2021-08-15 07:09] LABS: Calc. Creatinine Clearance 126 mL/min (70-130)
[2021-08-15] MEDS: Guaifenesin DM 100-10/5 ML UDCUP PO PRN (09:47)
[2021-08-15] MEDS: Baclofen 10 MG TAB PO SCH (09:47)
[2021-08-15] MEDS: levETIRAcetam 500 mg/5 ml Oral Solution PO SCH (09:47)
[2021-08-15] MEDS: Clopidogrel Bisulfate 75 MG TAB PO SCH (09:48)
[2021-08-15] MEDS: Magnesium Oxide 400 MG TAB PO SCH (09:48)
[2021-08-15] MEDS: metFORMIN 500 MG TAB PO SCH (09:48)
[2021-08-15] MEDS: Multivitamin W/ Minerals 1 TAB PO SCH (09:48)
[2021-08-15] MEDS: Ferrous Gluconate 324 MG TAB PO SCH (09:48)
[2021-08-15] MEDS: Folic Acid 1 MG TAB PO SCH (09:48)
[2021-08-15] MEDS: Escitalopram Oxalate 10 mg Tablet PO SCH (09:48)
[2021-08-15] MEDS: Docusate 100 MG CAP PO SCH (09:48)
[2021-08-15] MEDS: Ascorbic Acid 500 mg Chewable Tablet PO SCH (09:48)
[2021-08-15] MEDS: Triple Antibiotic Oint 1 GM Packet TOP SCH (09:49)
[2021-08-15 14:57] VITALS: BP 126/72; TEMP 98.6
== END 2021-08-15 14:50 | DRG 853 ==
LOC: ERS 02:18 → ERHOLD 05:46 → T4-B 09:39
PROVIDERS: ADMIT Internal Medicine; ATTEND Family Medicine
PROC: 3E0G76Z Introduction of Nutritional Substance into Upper GI, Via Natural or Artificial Opening (ICD-10-PCS; 2021-07-07)
PROC: 3E03329 Introduction of Other Anti-infective into Peripheral Vein, Percutaneous Approach (ICD-10-PCS; 2021-07-07)
PROC: 0Y6D0Z1 Detachment at Left Upper Leg, High, Open Approach (ICD-10-PCS; principal; 2021-07-27)
PROC: 0KBN0ZZ Excision of Right Hip Muscle, Open Approach (ICD-10-PCS; 2021-07-27)
PROC: 30233N1 Transfusion of Nonautologous Red Blood Cells into Peripheral Vein, Percutaneous Approach (ICD-10-PCS; 2021-07-28)
PROC: 02HV33Z Insertion of Infusion Device into Superior Vena Cava, Percutaneous Approach (ICD-10-PCS; 2021-08-01)
PROC: B5181ZA Fluoroscopy of Superior Vena Cava using Low Osmolar Contrast, Guidance (ICD-10-PCS; 2021-08-01)
PROC: B548ZZA Ultrasonography of Superior Vena Cava, Guidance (ICD-10-PCS; 2021-08-01)
PROC: 8E0ZXY6 Isolation (ICD-10-PCS; 2021-08-04)
DX: A41.02 Sepsis due to Methicillin resistant Staphylococcus aureus (principal); L89.154 Pressure ulcer of sacral region, stage 4; G06.1 Intraspinal abscess and granuloma; U07.1 COVID-19; D62 Acute posthemorrhagic anemia; M46.24 Osteomyelitis of vertebra, thoracic region; G82.21 Paraplegia, complete; N13.30 Unspecified hydronephrosis; N17.9 Acute kidney failure, unspecified; M48.54XA Collapsed vertebra, not elsewhere classified, thoracic region, initial encounter for fracture; A41.4 Sepsis due to anaerobes; M46.44 Discitis, unspecified, thoracic region; E11.51 Type 2 diabetes mellitus with diabetic peripheral angiopathy without gangrene; N18.30 Chronic kidney disease, stage 3 unspecified; G40.909 Epilepsy, unspecified, not intractable, without status epilepticus; M62.462 Contracture of muscle, left lower leg; E11.22 Type 2 diabetes mellitus with diabetic chronic kidney disease; N31.9 Neuromuscular dysfunction of bladder, unspecified; N40.1 Benign prostatic hyperplasia with lower urinary tract symptoms; R33.8 Other retention of urine; F01.50 Vascular dementia, unspecified severity, without behavioral disturbance, psychotic disturbance, mood disturbance, and anxiety; I12.9 Hypertensive chronic kidney disease with stage 1 through stage 4 chronic kidney disease, or unspecified chronic kidney disease; E83.39 Other disorders of phosphorus metabolism; E11.649 Type 2 diabetes mellitus with hypoglycemia without coma; Z28.21 Immunization not carried out because of patient refusal; Z89.512 Acquired absence of left leg below knee; Z86.73 Personal history of transient ischemic attack (TIA), and cerebral infarction without residual deficits; Z79.899 Other long term (current) drug therapy; Z79.84 Long term (current) use of oral hypoglycemic drugs; Z79.4 Long term (current) use of insulin
CPT/HCPCS: 0240U; 36415; 36416; 36430; 36569; 71045; 72070; 72157; 80048; 80053; 80202; 81003; 81015; 82565; 82947; 83605; 83735; 84100; 84134; 85025; 85652; 86140; 86850; 86900; 86901; 87040; 87070; 87077; 87086; 87186; 87205; 88307; 88311; 93005; 93010; 96365; 96375; 97602; C1713; C1751; J0692; J0696; J1100; J1644; J1650; J1815; J2185; J2270; J2405; J2704; J3010; J3370; J3475; J3490; J7050; J7070; P9016; U0003; U0005

== ENCOUNTER 2023-01-30 07:18 | Day surgery (SDC) | payer OTHER ==
[2023-01-29 14:15] VITALS: BMI 18.7
[2023-01-30] MEDS ORDERED: PROPOFOL 200 MG/20 ML VIAL ONE (08:50)
[2023-01-30] MEDS ORDERED: Lidocaine 1% PF 5 ML VIAL ONE (08:50)
[2023-01-30] MEDS ORDERED: PHENYLEPHRINE-NS 100 MCG/ML 10 ML SYRINGE ONE (08:50)
== END 2023-01-30 12:10 | disposition home or self-care (01) ==
LOC: SDC 07:18
PROVIDERS: ATTEND Internal Medicine Gastroenterology
PROC: 0DJ08ZZ Inspection of Upper Intestinal Tract, Via Natural or Artificial Opening Endoscopic (ICD-10-PCS; principal; 2023-01-30)
DX: K44.9 Diaphragmatic hernia without obstruction or gangrene (principal); R11.2 Nausea with vomiting, unspecified; I11.0 Hypertensive heart disease with heart failure; I50.9 Heart failure, unspecified; R63.4 Abnormal weight loss; E11.9 Type 2 diabetes mellitus without complications; I25.10 Atherosclerotic heart disease of native coronary artery without angina pectoris; N40.0 Benign prostatic hyperplasia without lower urinary tract symptoms; G40.909 Epilepsy, unspecified, not intractable, without status epilepticus; N31.9 Neuromuscular dysfunction of bladder, unspecified; N17.9 Acute kidney failure, unspecified; D64.9 Anemia, unspecified; I73.9 Peripheral vascular disease, unspecified; Z79.4 Long term (current) use of insulin; Z79.84 Long term (current) use of oral hypoglycemic drugs; Z86.16 Personal history of COVID-19; Z96.652 Presence of left artificial knee joint; Z79.899 Other long term (current) drug therapy; Z79.02 Long term (current) use of antithrombotics/antiplatelets; Z68.1 Body mass index [BMI] 19.9 or less, adult
CPT/HCPCS: 36416; J2704